=== PATIENT | male | born 1930 | race Caucasian/White ===

== ENCOUNTER 2016-12-04 01:23 | Inpatient (IN) | payer OTHER, MEDICARE ==
[~2016-12-04] VITALS: Ht 177.8 cm; Wt 68.5 kg
[~2016-12-04 01:23] MED LIST: ADVAIR 500-501 EACH INH; ALPRAZOLAM0.5 M4 PO; AMLODIPINE BESYL5 M1 PO; ASPIRIN EC325 M2 PO; ASPIRIN EC81 M1 PO; ATENOLOL50 M1 PO; HYDRALAZINE HCL50 M1 PO; HYDROCHLOROTHIA25 M1 PO; LIPITOR20 M2 PO; LOSARTAN-HCTZ1 EAC2 PO; PLAVIX75 M1 PO; SPIRIVA18 MCG INH
--- NOTE | 2016-12-04 01:28 | ED NEURO DEFICIT/STROKE ---
History of Present Illness General Chief Complaint: General Adult Stated Complaint: BIBA FOR EVAL OF STROKE Source: patient Exam Limitations: clinical condition Vital Signs & Intake/Output Vital Signs & Intake/Output Vital Signs Date Time Temp Pulse Resp B/P Pulse O2 O2 Flow FiO2 Ox Delivery Rate 12/04 0231 78 16 154/82 96 Room Air 12/04 0213 168/76 12/04 0157 98.0 75 20 169/118 95 Room Air Allergies Coded Allergies: NO KNOWN ALLERGIES (05/29/16) Reconcile Medications Alprazolam 0.5 MG TABLET 1 TAB PO TID PRN ANXIETY (Reported) Amlodipine Besylate 5 MG TABLET 1 TAB PO DAILY BP (Reported) Aspirin (Ecotrin*) 325 MG TABLET.DR 1 TAB PO DAILY anticoagulation Atenolol 50 MG TABLET 1 TAB PO BID BP (Reported) Atorvastatin Calcium (Lipitor) 20 MG TABLET 1 TAB PO DAILY CHOLESTEROL ( Reported) Fluticasone/Salmeterol (Advair 500-50 Diskus) (Unknown Strength) BLST.W.DEV 2 PUFF INH BID RESPIRATORY (Reported) Hydralazine HCl 50 MG TABLET 1 TAB PO TID BP (Reported) Hydrochlorothiazide 25 MG TABLET 1 TAB PO DAILY DAILY Tiotropium [place] (Spiriva) 18 MCG CAP.W.DEV 1 CAP INH DAILY RESPIRATORY ( Reported) Triage Nurses Notes Reviewed? yes Onset: UNCERTAIN ONSET Duration: hour(s): Timing: single episode today Severity: moderate New Weakness: LUE Vision Problem? Yes Impaired Ability: difficult to speak Baseline: alert, oriented x 3 Associated Symptoms: RIGHT GAZE PREFERENCE HPI: 86 yo gentleman presents with left sided weakness, dysarthria, and right gaze preference. He as last seen well approximately 5-6 hours ago. His family noted that he was making guttural sounds in the middle of the night and discovered him and called 911. Past History Travel History Traveled to [place] past 21 day No Medical History Any Pertinent Medical History? see below for history Neurological: TIA Cardiovascular: aortic stenosis, hypertension, hyperlipidemia Respiratory: COPD Hepatic: NONE Renal: chronic kidney disease Endocrine: NONE Cancer(s): NONE History of MRSA: No History of VRE: No History of CDIFF: No Pneumonia Vaccine: 09/17/14 Influenza Vaccine: 05/18/16 Surgical History Surgical History: POLYP REMOVAL NOSE ANGIOGRAM 2016 Psychosocial History Who do you live with Daughter Services at Home None What is your primary language Khmer Family History Hx Contributory? No Review of Systems Review of Systems Constitutional: Reports: no symptoms. EENTM: Reports: no symptoms. Respiratory: Reports: no symptoms. Cardiovascular: Reports: no symptoms. GI: Reports: no symptoms. Genitourinary: Reports: no symptoms. Musculoskeletal: Reports: no symptoms. Skin: Reports: no symptoms. Neurological/Psychological: Reports: no symptoms. Hematologic/Endocrine: Reports: no symptoms. Immunologic/Allergic: Reports: no symptoms. All Other Systems: Reviewed and Negative Physical Exam Physical Exam General Appearance: well developed/nourished, moderate distress Head: atraumatic, normal appearance Eyes: Bilateral: other (right gaze preference). Ears, Nose, Throat: normal ENT inspection Neck: normal inspection, supple Respiratory: normal breath sounds, chest non-tender, no respiratory distress, quiet respiration, lungs clear Cardiovascular: regular rate/rhythm Gastrointestinal: normal bowel sounds, soft, non-tender Back: normal inspection, normal range of motion Extremities: normal range of motion Psychiatric: lethargic Cranial Nerves: right gaze preference, minimally responsive to vigorous stimuli, intact but diminished gag reflex, no tongue deviation. decreased strength of left arm (4/5), but difficult to assess due to mental status change. no flacidity. Coordination/Gait: unable to assess due to patient's condition Motor/Sensory: minimal movement in left arm/leg Reflexes: 1+: bicep (R), bicep (L), knee (R), knee (L). Skin: intact Core Measures CVA/TIA Diagnosis: No Severe Sepsis Present: No Septic Shock Present: No Bedside Dysphagia Screen Bedside Swallow Eval Done: No (pt fails due to mental status ) Progress Differential Diagnosis: electrolyte imbalance, encephalitis, intracranial Hem., intracranial mass/tumor, migraine RUBIO, seizure disorder, subarachnoid Hem. Plan of Care: Orders Procedure Date/time Status Patient Data 12/04 0340 Active [place]arte, Insertion/Removal/Asses 12/04 015 Active CULTURE,URINE 12/04 0152 Active URINALYSIS 12/04 0152 Complete TROPONIN LEVEL 12/04 012 Complete PARTIAL THROMBOPLASTIN TIME 12/04 0128 Complete PROTHROMBIN TIME 12/04 012 Complete COMPREHENSIVE METABOLIC PANEL 12/05 127 Complete CBC WITHOUT DIFFERENTIAL 12/05 127 Complete EKG 12/04 012 Active Current Medications Sig/[place] Start time Last Medication Dose Stop Time Status Admin Phenytoin 1,000 MG ONCE ONE 12/04 199 CAN (Dilantin) 12/04 230 Sodium Chloride 250 ML (Normal Saline 0.9%) Laboratory Tests 12/04/16 0249: PT 12.1, INR 1.15, APTT 35 12/04/16158: Anion Gap 12, Estimated GFR 30 L, BUN/Creatinine Ratio 23.8, Glucose 77, Calcium 10.0, Total Bilirubin 0.6, AST 67 H, ALT 66, Alkaline Phosphatase 120, Troponin I 0.02, Total Protein 7.4, Albumin 3.9, Globulin 3.5, Albumin/Globulin Ratio 1.1, CBC w Diff NO MAN DIFF REQ, RBC 3.98 L, MCV 89.5, MCH 29.6, RDW 14.8 H, MPV 9.0, Gran % 68.1, Lymphocytes % 16.4 L, Monocytes % 8.9, Eosinophils % 6.1 H, Basophils % 0.5, Absolute Granulocytes 6.0, Absolute Lymphocytes 1.4, Absolute Monocytes 0.8 H, Absolute Eosinophils 0.5, Absolute Basophils 0, PUBS MCHC 33.0, Urinalysis LIGHT H, Urine Color YEL, Urine Clarity CLEAR, Urine pH 6.0, Ur Specific [place] 1.020, Urine Protein 30 H, Urine Ketones NEG, Urine Nitrite NEG, Urine Bilirubin NEG, Urine Urobilinogen 1.0, Ur Leukocyte Esterase NEG, Ur Microscopic SEDIMENT EXAMINED, Urine RBC RARE, Urine WBC RARE, Urine Mucus FEW, Urine Hemoglobin NEG, Urine Glucose NEG Microbiology 12/04 158 URINE ROUT: Urine Culture - RECD Diagnostic Imaging: Viewed by Me: Radiology Read, CT Scan. Discussed w/RAD: Radiology Read, CT Scan. Radiology Impression: head ct... at least 2 mass lesions... full report below. CXR Impression: no acute abnormality, no infiltrates, normal size heart, normal mediastinum Initial ED EKG: normal axis, normal intervals, normal p-waves, normal QRS complex, normal sinus rhythm Comments: PATIENT: FATIMAH MATHEW PRESENT AGE: 86 PATIENT ACCOUNT NO: [id number] : 31 LOCATION: [facility] ORDERING PHYSICIAN: LARRY TAMEZ MD SERVICE DATE: 12/04/16 EXAM TYPE: CAT - CT HEAD WO IV CONTRAST EXAMINATION: CT HEAD WITHOUT CONTRAST CLINICAL INFORMATION: Left-sided weakness COMPARISON: None TECHNIQUE: Contiguous axial imaging was performed from the skull base to vertex without intravenous administration of contrast. DLP: 1220.3 mGy-cm FINDINGS: There are 2 mass lesions. At the vertex in the left frontal region there is a hypodense area measuring 3.6 cm AP by 4.2 cm transverse. This has a subtle hyperdense rim. There is surrounding edema in the adjacent white matter. The second lesion in the right basal ganglia. Hypodense area measures 2.4 cm AP by 2.4 cm transverse with a slightly hyperdense rim. This is causing mass effect compressing the right lateral frontal horn and slight midline shift. These lesions raise question of metastatic disease. There is also a low attenuating area subcortical escobar matter in the right prefrontal gyrus. This may be related to the metastatic disease or underlying old infarct. There is also subtle hypodensity with subtle hyperdense surrounding cortex at the right posterior parietal-occipital region axial image 23 (3). There is atrophy with prominence of the ventricles and sulci consistent with patient age. There is vascular calcification of the internal carotid arteries. No intracranial hemorrhage. No extra-axial collection. The osseous structures and soft tissues are normal. The mastoid air cells and visualized portions of the paranasal sinuses are well aerated. Likely postsurgical changes of the medial wall the right and left maxillary sinuses IMPRESSION: There are at least 2 mass lesions in the head. This is suspicious of metastatic disease. Consider MRI of head without and with contrast for follow-up. This critical result was discussed with Dr. Tamez on 2:00 AM, 12/04/2016 and it was ascertained that the content and urgency of the report was understood at the time of direct communication. DICTATED BY: LATANYA SPENCE MD DATE/TIME DICTATED:12/04/16151 CONSUMER EDUCATION SPECIALIST:CASIE DATE/TIME TRANSCRIBED:12/04/16151 CONFIDENTIAL, DO NOT COPY WITHOUT APPROPRIATE AUTHORIZATION. <Electronically signed in Other Vendor System> SIGNED BY: LATANYA SPENCE MD 12/04/16 0209 PATIENT: FATIMAH MATHEW PRESENT AGE: 86 PATIENT ACCOUNT NO: [id number] : 31 LOCATION: [facility] ORDERING PHYSICIAN: LARRY TAMEZ MD SERVICE DATE: 12/04/16-0128 EXAM TYPE: RAD - XRY-PORTABLE CHEST XRAY EXAMINATION: XR PORTABLE CHEST CLINICAL INFORMATION: CVA. COMPARISON: Chest x-ray 05/31/2016 , 02/22/2016 TECHNIQUE: Portable AP view of the chest was obtained. 1:57 AM FINDINGS: No significant abnormality is noted involving the heart, lungs, mediastinum, bony thorax or soft tissues. IMPRESSION: No acute abnormality of the chest. DICTATED BY: LATANYA SPENCE MD DATE/TIME DICTATED:12/04/16228 CONSUMER EDUCATION SPECIALIST:CASIE DATE/TIME TRANSCRIBED:12/04/16228 CONFIDENTIAL, DO NOT COPY WITHOUT APPROPRIATE AUTHORIZATION. <Electronically signed in Other Vendor System> SIGNED BY: LATANYA SPENCE MD 12/04/16232 Departure Departure Disposition: STILL A PATIENT Condition: Stable Clinical Impression Primary Impression: Brain metastases Secondary Impressions: Mental status change, Renal insufficiency, Seizure Referrals: BARRY ADDISON,EUN Ayala (PCP/Family) Departure Forms: Customer Survey General Discharge Information Comments 12/04/16, 2:02am.... pt had brief seizure.... discussed with [facility]... most consistent with metastasis... discussed with neurologist dr. waters.... will give decadron, keppra... MRI in am. Admission Note Spoke With: DENISE ADDISON,[facility] Documentation of Exam: Documentation of any treatments & extenuating circumstances including Concerns Regarding Discharge (functional status, medication knowledge or non-compliance, living conditions, etc.) that warrant an admission rather than observation: pt with brain mets, pt had seizure in ED... received decadron/ativan/keppra... discussed with dr. waters.. neuro will see pt in AM... pt to be admitted to icu for monitoring... will require mri, further eval for likely primary. Critical Care Note Critical Care Note Critical Care Time: 30-74 min
--- NOTE | 2016-12-04 01:29 | NUR ---
PER EMS LAST SEEN NORMAL AT [facility] [phone], ABOUT 30 MINUTES AGO HEARD PT GRUNTING AND WENT TO CHECK ON HIM AND FOUND BY FAMILY WITH RT SIDED GAZE AND UNABLE TO SPEAK. UPON ED ARRIVAL PT LOOKS TO RT BUT NOT LEFT.
--- NOTE | 2016-12-04 01:37 | NUR ---
PT TO CAT SCAN VIA STRETCHER. HEART MONITOR AND THIS RN IN ATTENDANCE.
--- NOTE | 2016-12-04 01:40 | NUR ---
PT EXPERIENCING LEFT SIDE NEGLECT. PT UNABLE TO ARTICULATE WORDS AT THIS TIME.
--- NOTE | 2016-12-04 01:47 | NUR ---
PT EXPERIENCING SEIZURE LIKE ACTIVITY. DR BROWN NOTIFIED.
--- NOTE | 2016-12-04 01:50 | NUR ---
PT MEDICATED WITH 2MG ATIVAN IV. DR BROWN AT BEDSIDE.
--- NOTE | 2016-12-04 01:56 | NUR ---
16FR DEL RIO PLACED USING STERILE TECHNIQUE. OUTPUT: 450ML CLEAR YELLOW URINE. SPECIMEN SENT TO LAB.
--- NOTE | 2016-12-04 01:59 | NUR ---
SST, LAV, BLUE, ZHAO AND PINK TOP TUBES SENT TO LAB.
--- NOTE | 2016-12-04 02:08 | NUR ---
DR BROWN AT BEDSIDE TO EXPLAIN IMAGING RESULTS.
--- NOTE | 2016-12-04 02:09 | CT SCAN REPORT ---
EXAMINATION: CT HEAD WITHOUT CONTRAST CLINICAL INFORMATION: Left-sided weakness COMPARISON: None TECHNIQUE: Contiguous axial imaging was performed from the skull base to vertex without intravenous administration of contrast. DLP: 1220.3 mGy-cm FINDINGS: There are 2 mass lesions. At the vertex in the left frontal region there is a hypodense area measuring 3.6 cm AP by 4.2 cm transverse. This has a subtle hyperdense rim. There is surrounding edema in the adjacent white matter. The second lesion in the right basal ganglia. Hypodense area measures 2.4 cm AP by 2.4 cm transverse with a slightly hyperdense rim. This is causing mass effect compressing the right lateral frontal horn and slight midline shift. These lesions raise question of metastatic disease. There is also a low attenuating area subcortical escobar matter in the right prefrontal gyrus. This may be related to the metastatic disease or underlying old infarct. There is also subtle hypodensity with subtle hyperdense surrounding cortex at the right posterior parietal-occipital region axial image 23 (3). There is atrophy with prominence of the ventricles and sulci consistent with patient age. There is vascular calcification of the internal carotid arteries. No intracranial hemorrhage. No extra-axial collection. The osseous structures and soft tissues are normal. The mastoid air cells and visualized portions of the paranasal sinuses are well aerated. Likely postsurgical changes of the medial wall the right and left maxillary sinuses IMPRESSION: There are at least 2 mass lesions in the head. This is suspicious of metastatic disease. Consider MRI of head without and with contrast for follow-up. This critical result was discussed with Dr. Tamez on 2:00 AM, 12/04/2016 and it was ascertained that the content and urgency of the report was understood at the time of direct communication.
--- NOTE | 2016-12-04 02:20 | NUR ---
PHARMACY CALLED FOR JOY
[2016-12-04 02:29] LABS: ABSOLUTE BASOPHIL COUNT 0 /CUMM (0.0-0.2); ABSOLUTE EOSINOPHIL COUNT 0.5 /CUMM (0.0-0.7); ABSOLUTE LYMPH COUNT 1.4 /CUMM (1.2-3.4); ABSOLUTE MONOCYTE COUNT 0.8 /CUMM (0.10-0.60); BASOPHIL % 0.5 % (0.0-2.0); EOSINOPHIL % 6.1 % (0-5); GRANULOCYTE % 68.1 % (42.2-75.2); HEMATOCRIT 35.7 % (42-52); MEAN CORPUSCULAR HGB 29.6 PG (27.0-31.0); MEAN CORPUSCULAR VOLUME 89.5 FL (80.0-94.0); PLATELET COUNT 338 /CUMM (130-400); RBC DISTRIBUTION WIDTH 14.8 % (11.5-14.5); RED BLOOD CELL CT 3.98 /CUMM (4.70-6.10); WHITE BLOOD CELL COUNT 8.8 /CUMM (4.8-10.8)
--- NOTE | 2016-12-04 02:33 | RADIOLOGY REPORT ---
EXAMINATION: XR PORTABLE CHEST CLINICAL INFORMATION: CVA. COMPARISON: Chest x-ray 05/31/2016 , 02/22/2016 TECHNIQUE: Portable AP view of the chest was obtained. 1:57 AM FINDINGS: No significant abnormality is noted involving the heart, lungs, mediastinum, bony thorax or soft tissues. IMPRESSION: No acute abnormality of the chest.
--- NOTE | 2016-12-04 02:34 | NUR ---
PT EXPERIENCING MUMBLING BUT WORDS ARE NOT CLEAR.
--- NOTE | 2016-12-04 02:50 | NUR ---
DANIEL PARKER AND SENT TO LAB
--- NOTE | 2016-12-04 03:08 | NUR ---
KEPPRA 1000MG ON PUMP AND INFUSING PER EMAR ORDER.
--- NOTE | 2016-12-04 03:09 | NUR ---
WILL CONTINUE TO MONITOR PT.
[2016-12-04 03:12] LABS: PT 12.1 SEC (9.4-12.5); PTT 35 SEC (25-37)
--- NOTE | 2016-12-04 03:37 | NUR ---
PT RESTING ON STRETCHER. FAMILY AT BEDSIDE FOR EMOTIONAL SUPPORT. WILL CONTINUE TO MONITOR.
--- NOTE | 2016-12-04 03:55 | NUR ---
HOUSESTAFF AT BEDSIDE.
--- NOTE | 2016-12-04 04:48 | History & Physical ---
THEO MENDOZA MD 12/04/16 0448: General Information and HPI MD Statement: I have seen and personally examined FATIMAH MATHEW and documented this H&P. The patient is a 86 year old M who presented with a patient stated chief complaint of altered mental status. Source of Information: family, old records Exam Limitations: clinical condition History of Present Illness: Mr. Mathew is an 86 year old male with PMH anxiety, HTN, HLD, TIA, aortic stenosis, COPD not on home O2, CKD stage 3 secondary to hypertensive nephrosclerosis and right carotid endarterectomy who presents after an episode of altered mental status at home. Patient is not responsive to questioning and history is obtained from patient's son and [id number] who are at bedside. As per the family, patient was in his usual state of health until this evening when his daughter heard him coughing and went to his room to check up on him, at which time she found he was laying in bed fully dressed making gutteral sounds and not responsive to questioning or commands. Patient showed no signs of seizure like activity, no tremors, no loss of bowel/bladder function, no foaming at the mouth. EMS was called and on arrival to the ED, patient was noted to have a generalized seizure, for which he received ativan, keppra and decadron. Of note, family does note that patient has recently lossed some weight though his appetite remained appropriate, he was more lethargic in the last few days and his eyes occasionally appeared glazed over. There is no recent report of fever, chills, chest pain, cough, shortness of breath, abdominal pain, nausea, vomiting , difficulty voiding or change in bowel habits (one bowel movement every 3 days) . Social history is significant for about 60-70 years of tobacco abuse. Mr. Mathew's son also reports that his father appreciated alcohol and was at one point a "functional alcoholic" though he does not drink as much as he used to. No illicit drug use history. Patient sees Dr. 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 He also follows with a tungsten tender for new rash on his bilateral upper extremities that is being treated with hydrocortisone and mupirocin. Functional status is completely independant and patient ambulates without assistance. Allergies/Medications Allergies: Coded Allergies: NO KNOWN ALLERGIES (05/29/16) Home Med list Alprazolam 0.5 MG TABLET 1 TAB PO TID PRN ANXIETY (Reported) Amlodipine Besylate 5 MG TABLET 1 TAB PO DAILY BP (Reported) Aspirin (Ecotrin*) 325 MG TABLET.DR 1 TAB PO DAILY anticoagulation Atenolol 50 MG TABLET 1 TAB PO BID BP (Reported) Atorvastatin Calcium (Lipitor) 20 MG TABLET 1 TAB PO DAILY CHOLESTEROL ( Reported) Fluticasone/Salmeterol (Advair 500-50 Diskus) (Unknown Strength) BLST.W.DEV 2 PUFF INH BID RESPIRATORY (Reported) Hydralazine HCl 50 MG TABLET 1 TAB PO TID BP (Reported) Hydrochlorothiazide 25 MG TABLET 1 TAB PO DAILY DAILY Tiotropium [place] (Spiriva) 18 MCG CAP.W.DEV 1 CAP INH DAILY RESPIRATORY ( Reported) Compliance With Home Meds: GOOD Past History Travel History Traveled to [place] past 21 day No Medical History Neurological: TIA EENT: NONE Cardiovascular: aortic stenosis, hypertension, hyperlipidemia Respiratory: COPD Gastrointestinal: NONE Hepatic: NONE Renal: chronic kidney disease Musculoskeletal: NONE Endocrine: NONE Cancer(s): NONE History of MRSA: No History of VRE: No History of CDIFF: No Pneumonia Vaccine: 09/17/14 Influenza Vaccine: 05/18/16 Surgical History Surgical History: POLYP REMOVAL NOSE ANGIOGRAM 2016 Past Family/Social History Psychosocial History Where do you live? Home Who Do You Live With? Family Services at Home: None Primary Language: Polish Smoking Status: Former Smoker ETOH Use: occasional use Illicit Drug Use: denies illicit drug use Living Will? no Functional Ability ADLs Independent: dressing, eating, toileting, bathing. Ambulation: independent IADLs Independent: shopping, housework, finances, food prep, telephone, transportation , medication admin. 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 Denies: chills, fever, malaise. EENTM: Denies: blurred vision, visual changes, nasal congestion, throat pain. Cardiovascular: Denies: chest pain, palpitations, syncope. Respiratory: Denies: cough, short of breath. GI: Denies: abdominal pain, diarrhea, nausea, vomiting. Genitourinary: Denies: dysuria, hematuria. Musculoskeletal: Denies: back pain, muscle pain. Skin: Reports: rash. Denies: lumps. Neurological/Psychological: Denies: ataxia, confusion, headache, pre-existing deficit, unable to move lower ext, unable to move upper ext. Hematologic/Endocrine: Denies: bruising, bleeding. Immunologic/Allergic: Denies: splenectomy. All Other Systems: Reviewed and Negative Colonoscopy Testing Status: Test never done Exam & Diagnostic Data Last 24 Hrs of Vital Signs/I&O Vital Signs Date Time Temp Pulse Resp B/P Pulse O2 O2 Flow FiO2 Ox Delivery Rate 12/04 0231 78 16 154/82 96 Room Air 12/04 0213 168/76 12/04 0157 98.0 75 20 169/118 95 Room Air Intake & Output 12/04 0800 12/04 0000 12/03 1600 Intake Total Output Total 450 Balance -450 Output, Urine 450 Physical Exam General Appearance Patient not responsive to questioning, not able to participate in physical exam. AAOxo. Skin Rash noted on right forearm and left upper arm, mildly erythematous, possibly eczema. HEENT Atraumatic, PERRLA, Mucous Membr. moist/pink Neck Supple, +2 Carotid Pulse wo Bruit Lymphatic Cervical nl Cardiovascular Regular Rate, Normal S1, Normal S2, No Murmurs Lungs Clear to Auscultation, Normal Air Movement Abdomen Normal Bowel Sounds, Soft, No Tenderness, No Masses Neurological Normal Tone, Neurological exam unable to be performed as patient cannot follow commands. No facial droop noted. Patient able to move extremities. Babinski downgoing bilaterally. PEERL. Extremities No Clubbing, No Cyanosis, No Edema, Normal Pulses Vascular Pulses Symmetrical Last 24 Hrs of Labs/Nestor: Laboratory Tests 12/04/16 0249: PT 12.1, INR 1.15, APTT 35 12/04/16 0159: Anion Gap 12, Estimated GFR 30 L, BUN/Creatinine Ratio 23.8, Glucose 77, Calcium 10.0, Total Bilirubin 0.6, AST 67 H, ALT 66, Alkaline Phosphatase 120, Troponin I 0.02, Total Protein 7.4, Albumin 3.9, Globulin 3.5, Albumin/Globulin Ratio 1.1, CBC w Diff NO MAN DIFF REQ, RBC 3.98 L, MCV 89.5, MCH 29.6, RDW 14.8 H, MPV 9.0, Gran % 68.1, Lymphocytes % 16.4 L, Monocytes % 8.9, Eosinophils % 6.1 H, Basophils % 0.5, Absolute Granulocytes 6.0, Absolute Lymphocytes 1.4, Absolute Monocytes 0.8 H, Absolute Eosinophils 0.5, Absolute Basophils 0, PUBS MCHC 33.0, Urinalysis LIGHT H, Urine Color YEL, Urine Clarity CLEAR, Urine pH 6.0, Ur Specific [place]pt[place] 1.020, Urine Protein 30 H, Urine Ketones NEG, Urine Nitrite NEG, Urine Bilirubin NEG, Urine Urobilinogen 1.0, Ur Leukocyte Esterase NEG, Ur Microscopic SEDIMENT EXAMINED, Urine RBC RARE, Urine WBC RARE, Urine Mucus FEW, Urine Hemoglobin NEG, Urine Glucose NEG Microbiology 12/04 0159 URINE ROUT: Urine Culture - RECD Diagnostic Data EKG Results Sinus tachycardia, HR 104, QTC 406 CXR Results IMPRESSION: No acute abnormality of the chest. Other Results CT HEAD WITHOUT CONTRAST CLINICAL INFORMATION: Left-sided weakness COMPARISON: None TECHNIQUE: Contiguous axial imaging was performed from the skull base to vertex without intravenous administration of contrast. DLP: 1220.3 mGy-cm FINDINGS: There are 2 mass lesions. At the vertex in the left frontal region there is a hypodense area measuring 3.6 cm AP by 4.2 cm transverse. This has a subtle hyperdense rim. There is surrounding edema in the adjacent white matter. The second lesion in the right basal ganglia. Hypodense area measures 2.4 cm AP by 2.4 cm transverse with a slightly hyperdense rim. This is causing mass effect compressing the right lateral frontal horn and slight midline shift. These lesions raise question of metastatic disease. There is also a low attenuating area subcortical escobar matter in the right prefrontal gyrus. This may be related to the metastatic disease or underlying old infarct. There is also subtle hypodensity with subtle hyperdense surrounding cortex at the right posterior parietal-occipital region axial image 23 (3). There is atrophy with prominence of the ventricles and sulci consistent with patient age. There is vascular calcification of the internal carotid arteries. No intracranial hemorrhage. No extra-axial collection. The osseous structures and soft tissues are normal. The mastoid air cells and visualized portions of the paranasal sinuses are well aerated. Likely postsurgical changes of the medial wall the right and left maxillary sinuses IMPRESSION: There are at least 2 mass lesions in the head. This is suspicious of metastatic disease. Consider MRI of head without and with contrast for follow-up. Assessment/Plan Assessment: Mr. Mathew is an 86 year old male with PMH anxiety, HTN, HLD, TIA, aortic stenosis, COPD not on home O2, CKD stage 3 secondary to hypertensive nephrosclerosis and right carotid endarterectomy who presents after episode of unresponsiveness and altered mental status at home. Family noted patient was coughing and making gutteral sounds and on evaluation of him was unable to get a response from him. EMS was called and on arrival to the ED, patient experienced a seizure treated with keppra, ativan and decadron. In the ED: Vital signs showed T 98.0, HR 75, RR 20, BP 169/118 and O2 saturation of 95% on room air. Labs were significant for normocytic anemia to 11.8/35.7, BUN/cre 50/2.1 (baseline cre 1.8), AST 67, troponin 0.02, INR 1.15 and UA showing high protein. CXR performed was within normal limits. Head CT showed agt least 2 masses in the head, suspicious for metastatic disease. Patient is admitted to the ICU and the following is the management: 1. Altered sensorium secondary to new onset seizure * Likely secondary to brain masses seen on CT head * Continue IV keppra 500 mg IV Q12, IV ativan PRN seizures, and IV decadron 4 mg Q6 * Seizure precautions, aspiration precautions * Neurochecks Q 1 H * CT chest, abdomen pelvis to look for possible source of metastatic cancer * MRI head pending for AM to better characterize lesion * Neurosurgery consult pending * Neurology consult for AM * Oncology consult for AM * Keep NPO as patient has altered sensorium and cannot perform bedside swallow at this time * IVF with D5-Normal Saline at 75 cc/h while NPO 2. CKD stage 3 * Monitor BEP and electrolytes * Continue IVF while patient NPO 3. HTN, HLD * Monitor vital signs Q shift * Hold antihypertensives for now, patient NPO * Permissive HTN with goal BP 140 DNR/DNI DVTP: SC Lovenox Diet: NPO Mild pain pathway As Ranked By This Provider Problem List: 1. Brain metastases 2. Seizure 3. Mental status change 4. Renal insufficiency 5. S/P carotid endarterectomy Core Measures/Miscellaneous Acute Coronary Syndrome ACS Diagnosis: No Cerebrovascular Accident CVA/TIA Diagnosis: No Bedside Swallow Eval Done: No (pt fails due to mental status ) Congestive Heart Failure CHF Diagnosis: No Venous Thromboembolism VTE Risk Factors: Acute medical illness, Age > 40 [facility] prophylaxis d/t: No contraindications No VTE Pharm Prophylaxis d/t: No contraindications VTE Diagnosis: No VTE Type: NONE VTE Confirmed by (Test): NONE Severe Sepsis Severe Sepsis Present: No Septic Shock Septic Shock Present: No Miscellaneous Documentation Attending Case Discussed With: HORACE WALKER MDYasmin Primary Care Physician: EUN REDDY MD Patient sees these Specialists Dr. Maharaj, Pulmonology Level of Patient Care: Telemetry MARSHAL ADDISON,[facility] 12/04/16 0528: Resident Review Statement Resident Statement: examined this patient, discussed with dental internship, agreed with dental internship Other Findings: This is an 86 y/o M with a PMH of HTN, HLD, CKD Stage 3, COPD recent carotid endarterectomy who presented to the ED after he was found to be altered and unable to follow commands at home. Per family, patient was walking and doing all his ADL's today. He was last seen normal at dinner. He was found a few hours later in his bed, making guttural sounds and was not responsive to verbal commands. There was no evidence of foaming at the mouth, bowel or bladder incontinence. He was also found not to be moving his extremities at the time. EMS was called and the patient was brought to the ED, where he had a generalized seizure. At the time of the interview, the patient was non verbal and unable to follow commands. Vitals: Stable Labs: Creatinine 2.1 Imaging: Presence of 2 mass lesions in the head (left frontal region and the right basal ganglia) seen on CT Head. CXR did not show the presence of any acute changes. Exam: Patient was somnolent. Unable to follow most commands, but was moving all his extremities spontaneously. Was unable to track. Babinski's downgoing. Reflexes 2+. Problem List: 1) Altered sensorium likely 2/2 seizures from possible parenchymal inflammation surrounding the brain lesions, which are mets from an unknown primary 2) CKD stage III 3) Hypertension 4) Hyperlipidemia 5) Severe anxiety 6) Skin lesions on the left elbow s/p biopsy with no available result Plan: * Admit patient to CCU * He received Ativan, Keppra and Decadron in the ED * For now, continue Decadron 4 mg Q6, Ativan 2 mg Q6P for seizures, Keppra 500 IV BID * CT Chest/Abdomen/Pelvis to look for primary * Neurology consult, Neurosurgery consult, Med-Onc consult * Family aware of the current prognosis and does want workup done to find the primary * DVT PPx: ALPS * Pain Pathway: Tylenol PRN * Code Status: DNR/DNI DENISE ADDISON, [facility] 12/04/16 0529: Attending MD Review Statement Attending Statement Attending MD Statement: examined this patient, discuss w/resident/PA/FIELD TRAINING MANAGER, agreed w/resident/PA/FIELD TRAINING MANAGER, discussed with family Attending Assessment/Plan: 86 yo M smoker, with h/o COPD, HTN, TIA s/p right CEA, CKD stage 3, aortic valve disease, previous alcohol dependence, BIBA for evaluation of altered mentation. Per daughter in law, patient was last seen normal around 7pm. A few hours later, they found him coughing, making grunting sounds and not responsive to verbal commands. He had a right gaze. No seizure like acitivity, urinary or fecal incontinence or tongue biting. 911 was called, on ER arrival patient had a brief episode of tonic-clonic seizure that was self limited. Daughter in law also reports that he has never had a colonoscopy, but he was compliant with doctor appointments. No personal h/o cancer. He sees Dr. Maharaj for COPD. Patient has not report any GI or symptoms. Family did note that he may have lost weight, though they cannot give us a number. Over past 1 week, family noted he was more lethargic and fatigued. Vitals stable except for hypertension BP 188/80. Exam limited as patient can barely follow commands. He is lethargic, but opens his eyes, tracks his daughter -in-laws voice. He did open his mouth and squeezed both hands on verbal command. No obvious facial droop, no gaze preference at this point, pupils equal and RTL but unable to track with eyes, moving all extremities though left side seems slightly weaker, reflexes 2+, plantars downgoing. Unable to assess cerebellar function, sensation, etc. Labs: BUN 50, creat 2.1 (baseline 1.7-1.8), trop neg, UA clear. CXR: neg. Head CT: 2 mass lesions suspicious for metastatic disease, 1st in left frontal region with surrounding edema and 2nd in right basal ganglia causing mass effect compressing right lateral frontal horn and midline shift. EKG: SR. 1. AMS new onset seizure with post-ictal confusion in the setting of brain lesions that appear metastatic, unknown primary. Less likely ischemic stroke. ICU admit, vitals Q1 hr, neurochecks Q1, GCS, NPO, IV fluids, aspiration and fall precautions, IV keppra and decadron, IV ativan PRN for seizures, Neurology and Neuro-surgery consult. MRI brain in AM to assess the mass lesions. CT chest/ abd/pelvis to locate primary. Patient has had skin biopsy last year, please obtain biopsy results. Oncology consult. [facility] consult. Hold aspirin. 2. Permissive hypertension, keep SBP around 140 mmHg. 3. Acute on CKD stage 3. Gentle hydration, monitor renal functions. GI ppx IV PPI. DVT ppx Alps (no heparin or lovenox). DNR/I. Detailed discussion held with patient's son and daughter in law. Daughter in law has worked in hospice care and understands the situation, while son is still in denial. They are agreeable to work up (CT/ MRI) but may not wish for aggressive management, as they understand he has a poor prognosis. TTS > 45 mins
--- NOTE | 2016-12-04 05:00 | NUR ---
PER PT'S FAMILY, THEY DO NOT WANT EMS IV TO BE DISCONTINUED AT THIS TIME. FAMILY ALLOWS FOR ONE ADDITIONAL IV TO BE ESTABLISHED. PER FAMILY, "WE DO NOT WANT TO CAUSE HIM ANY PAIN."
--- NOTE | 2016-12-04 05:23 | NUR ---
PT TO AND FROM CAT SCAN. PT ABLE TO ARTICULATE THE WORD "YES" WHILE IN CAT SCAN.
--- NOTE | 2016-12-04 05:30 | Admission Certification ---
Admission Certification Certification Statement - As attending physician, I certify that at the time of - admission, based on clinical presentation, severity of - symptoms, need for further diagnostic testing and - therapeutic interventions, and risk of adverse outcomes - without in-hospital treatment, in my clinical assessment, - this patient requires an acute hospital stay for a minimum - of two nights or longer. I have also considered psychsocial - factors such as support system, advanced age, financial - issues, cognitive issues, and failed out-patient treatments, - past re-admission history, safety of patient, and lack of - compliance as applicable. Specific rationale supporting this admission is: Altered mental status, new onset seizure, brain mets unknown primary, needs ICU level of care.
--- NOTE | 2016-12-04 05:35 | NUR ---
HOUSETAFF PAGED, BEEPER 033 PAGED.
--- NOTE | 2016-12-04 05:36 | NUR ---
HOUSESTAFF RETURNED CALL.
--- NOTE | 2016-12-04 05:37 | NUR ---
MANUAL BP 188/80 HOUSESTAFF AWARE.
--- NOTE | 2016-12-04 05:52 | CT SCAN REPORT ---
EXAMINATION: CT CHEST, ABDOMEN AND PELVIS WITHOUT CONTRAST CLINICAL INFORMATION: Abnormal CT head with probable brain metastases. Evaluating for possible primary. COMPARISON: Chest x-ray 05/31/2016 TECHNIQUE: Noncontrast axial images obtained through the chest abdomen and pelvis. No oral contrast given. Coronal and sagittal reformatted images performed at the CT scanner DLP: 471.22 mGy-cm. FINDINGS: CT CHEST: Lungs: Mildly spiculated lobular mass lesion at the posterior medial left lung base. The lesion measures 3.7 x 2.4 x 2.9 cm. This is highly suspicious for malignancy. There are additional lung nodules: 1. There is a peripheral groundglass opacity in the left upper lobe measuring 1.3 cm image 19 (3). 2. 2 mm nodule medial right upper lobe image 32 (3) 3. 3 mm nodule right middle lobe image 34 (3). There is a small Infiltrates/atelectasis at the dependent right lung base. Mediastinum: No mass or lymphadenopathy. There is vascular calcifications of aorta and great vessels and coronary arteries. No pericardial effusion. Pleura: There is no pleural effusion. No pleural mass or thickening. Axilla: No lymphadenopathy. CT ABDOMEN AND PELVIS: LIVER, GALLBLADDER, AND BILIARY TREE: Multiple masses throughout the liver consistent with metastatic disease. These are of low attenuation. Largest inferior right lobe measuring 6 cm transverse. The gallbladder is unremarkable with no evidence of radiopaque gallstones, gallbladder wall thickening, or obvious pericholecystic inflammatory changes. PANCREAS: No acute change of the pancreas. No mass. No pancreatic duct dilatation. SPLEEN: Coarse calcification within the medial mid spleen. No mass evident. ADRENAL GLANDS: Adrenal glands are normal in size. No focal mass. KIDNEYS AND URETERS: Bilateral low attenuating renal cysts. There is also likely a hyperdense cyst at the upper pole of the right kidney measuring 1.4 cm. No renal or ureteral calculus. No hydronephrosis. BLADDER: Duarte catheter within the bladder. GASTROINTESTINAL TRACT: No acute change of the bowel. No bowel obstruction. No bowel wall thickening or edema. There is diverticulosis of left colon. Diverticulitis. The appendix is normal. Small bowel loops are normal. MESENTERY: No focal inflammation. No free fluid. No free air. ABDOMINAL WALL: No significant hernia is appreciated. LYMPH NODES: No bulky lymphadenopathy. VASCULAR: Atherosclerotic vascular wall calcifications of aorta. 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 PELVIC VISCERA: Unremarkable. OSSEOUS STRUCTURES: No suspicious osseous lesion. Multilevel degenerative spondylosis of the spine with disc height narrowing and endplate spurs and facet joint arthrosis. IMPRESSION: 1. Mass lesion in the left lower lobe highly suspicious for malignancy. Additional smaller groundglass and small lung nodules in both lungs. 2. Right lower lobe infiltrate/atelectasis. 3. Metastatic disease of the liver.
--- NOTE | 2016-12-04 06:16 | NUR ---
BLOOD DRAWN AND SENT TO LAB [facility]
[2016-12-04 06:22] LABS: ABSOLUTE BASOPHIL COUNT 0 /CUMM (0.0-0.2); ABSOLUTE EOSINOPHIL COUNT 0.1 /CUMM (0.0-0.7); ABSOLUTE GRANULOCYTE CT 6.9 /CUMM (1.4-6.5); ABSOLUTE LYMPH COUNT 0.9 /CUMM (1.2-3.4); ABSOLUTE MONOCYTE COUNT 0.2 /CUMM (0.10-0.60); BASOPHIL % 0.1 % (0.0-2.0); EOSINOPHIL % 1.8 % (0-5); GRANULOCYTE % 85.4 % (42.2-75.2); HEMATOCRIT 32.6 % (42-52); MEAN CORPUSCULAR HGB 29.5 PG (27.0-31.0); MEAN CORPUSCULAR HGB CONC 33.1 G/DL (33.0-37.0); MEAN CORPUSCULAR VOLUME 89.2 FL (80.0-94.0); MEAN PLATELET VOLUME 8.2 FL (7.4-10.4); PLATELET COUNT 292 /CUMM (130-400); RED BLOOD CELL CT 3.65 /CUMM (4.70-6.10); WHITE BLOOD CELL COUNT 8.1 /CUMM (4.8-10.8)
--- NOTE | 2016-12-04 06:35 | NUR ---
BP NOW 133/63, APRESOLINE NOT GIVEN AT THIS TIME.
--- NOTE | 2016-12-04 06:37 | NUR ---
REPORT GIVEN TO HEMAL LINDA ON ICU.
[2016-12-04 07:00] VITALS: BP 153/63
--- NOTE | 2016-12-04 07:27 | Cons- CRCU ---
DANNY ADDISON,[facility] 12/04/16 0727: General Information and HPI History of Present Illness: Mr. Tovar is an 86 year old male with PMH anxiety, HTN, HLD, TIA, aortic stenosis, COPD not on home O2, CKD stage 3 secondary to hypertensive nephrosclerosis and right carotid endarterectomy who presented after an episode of altered mental status at home. Patient was not responsive to questioning and history was obtained from patient's son and [id number] who were at bedside. As per the family, patient was in his usual state of health until this evening when his daughter heard him coughing and went to his room to check up on him, at which time she found he was laying in bed fully dressed making gutteral sounds and not responsive to questioning or commands. Patient showed no signs of seizure like activity, no tremors, no loss of bowel/bladder function, no foaming at the mouth. EMS was called and on arrival to the ED, patient was noted to have a generalized seizure, for which he received ativan, keppra and decadron. Of note, family does note that patient had recently lost some weight though his appetite remained appropriate, he was more lethargic in the last few days and his eyes occasionally appeared glazed over. There is no recent report of fever, chills, chest pain, cough, shortness of breath, abdominal pain, nausea, vomiting , difficulty voiding or change in bowel habits (one bowel movement every 3 days) . Social history is significant for about 60-70 years of tobacco abuse. Mr. Tovar's son also reports that his father appreciated alcohol and was at one point a "functional alcoholic" though he does not drink as much as he used to. No illicit drug use history. 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 He also follows with a photographic printer for new rash on his bilateral upper extremities that is being treated with hydrocortisone and mupirocin. Functional status is completely independant and patient ambulates without assistance. He was admitted to ICU overnight for altered mental status likely secondary to brain metastasis, neurology, oncology, neurosurgery consults were placed. Allergies/Medications Allergies: Coded Allergies: NO KNOWN ALLERGIES (05/29/16) Home Med List: Alprazolam 0.5 MG TABLET 1 TAB PO TID PRN ANXIETY (Reported) Amlodipine Besylate 5 MG TABLET 1 TAB PO DAILY BP (Reported) Aspirin (Ecotrin*) 325 MG TABLET.DR 1 TAB PO DAILY anticoagulation Atenolol 50 MG TABLET 1 TAB PO BID BP (Reported) Atorvastatin Calcium (Lipitor) 20 MG TABLET 1 TAB PO DAILY CHOLESTEROL ( Reported) Fluticasone/Salmeterol (Advair 500-50 Diskus) (Unknown Strength) BLST.W.DEV 2 PUFF INH BID RESPIRATORY (Reported) Hydralazine HCl 50 MG TABLET 1 TAB PO TID BP (Reported) Hydrochlorothiazide 25 MG TABLET 1 TAB PO DAILY DAILY Tiotropium [place] (Spiriva) 18 MCG CAP.W.DEV 1 CAP INH DAILY RESPIRATORY ( Reported) Past History Travel History Traveled to [place] past 21 day No Medical History Neurological: TIA EENT: NONE Cardiovascular: aortic stenosis, hypertension, hyperlipidemia Respiratory: COPD Gastrointestinal: NONE Hepatic: NONE Renal: chronic kidney disease Musculoskeletal: NONE Endocrine: NONE Cancer(s): NONE Surgical History Surgical History: POLYP REMOVAL NOSE ANGIOGRAM 2016 Psychosocial History Where Do You Live? Home Who Do You Live With? Family Services at Home: None Primary Language: Vincentian Smoking Status: Former Smoker ETOH Use: occasional use Illicit Drug Use: denies illicit drug use Living Will? no Functional Ability ADLs Independent: dressing, eating, toileting, bathing. Ambulation: independent IADLs Independent: shopping, housework, finances, food prep, telephone, transportation , medication admin. Employment History Employment: Retired Profession/Employer: [employer] Exam & Diagnostic Data Physical Exam General Appearance: no apparent distress Assessment/Plan Impression/Plan: Mr. 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 Family noted patient was coughing and making gutteral sounds and on evaluation of him was unable to get a response from him. EMS was called and on arrival to the ED, patient experienced a seizure treated with keppra, ativan and decadron. In the ED: Vital signs showed T 98.0, HR 75, RR 20, BP 169/118 and O2 saturation of 95% on room air. Labs were significant for normocytic anemia to 11.8/35.7, BUN/cre 50/2.1 (baseline cre 1.8), AST 67, troponin 0.02, INR 1.15 and UA showing high protein. CXR performed was within normal limits. Head CT showed agt least 2 masses in the head, suspicious for metastatic disease. Patient is admitted to the ICU and the following is the management: 1. Altered sensorium secondary to new onset seizure: Likely secondary to brain masses seen on CT head, patient was started on IV keppra 500 mg IV Q12, IV ativan PRN seizures, and IV decadron 4 mg Q6, along with Seizure precautions, aspiration precautions, Neurochecks Q 1 H, CT chest showed evidence of lobular mass lesion at the posterior medial left lung base highly suspicious of malignancy, oncology on board, patient family made aware of the diagnosis, patient current clinical condition and unfortunately poor prognosis secondary to metastic lung disease explained to the family, in the meanwhile neurology and neurosurgery consults have been placed recommendations pending. Will keep patient nothing by mouth second altered sensorium, will further talk about goals of care when appropriate. 2. CKD stage 3 * Monitor BEP and electrolytes * Continue IVF while patient NPO 3. HTN, HLD * Monitor vital signs Q shift * Hold antihypertensives for now, patient NPO * Permissive HTN with goal BP 140 DNR/DNI DVTP: SC Lovenox Diet: NPO Mild pain pathway Consult Acknowledgment - Thank you for your consult request. SHAMAR AGUILAR MD 12/04/16 0924: General Information and HPI Consulting Request Date of Consult: 12/04/16 Requested By: Dr. Mccarthy Reason for Consult: AMS Source of Information: family Exam Limitations: unable to give history Allergies/Medications Current Medications: Current Medications Sig/Guicho Start time Last Medication Dose Route Stop Time Status Admin Acetaminophen 1,000 MG Q6P PRN 12/04 0500 AC IV Dexamethasone 4 MG Q6 12/04 0600 AC 12/04 Dextrose/Water 50 ML IV 0618 Dexamethasone 8 MG ONCE ONE 12/04 0215 DC 12/04 IV PUSH 12/04 0216 0236 Dextrose/Sodium 1,000 ML .[id number] 12/04 0500 AC 12/04 Chloride IV 0637 Enoxaparin Sodium 30 MG DAILY 12/04 1000 CAN SC Hydralazine HCl 5 MG ONCE ONE 12/04 0545 DC IV 12/04 0546 Levetiracetam 500 MG Q12 12/04 1000 AC N/A 1 UNIT IV Levetiracetam 1,000 MG ONCE ONE 12/04 0215 DC 12/04 N/A 1 UNIT IV 12/04 0229 0308 Lorazepam 2 MG Q6P PRN 12/04 0500 AC IV Lorazepam 2 MG ONCE ONE 12/04 0200 DC 12/04 IV 12/04 0201 0156 Lorazepam 0 .STK-MED ONE 12/04 0152 DC .ROUTE Morphine Sulfate 2 MG Q1 NEEDED PRN 12/04 0845 AC IV Pantoprazole Sodium 40 MG DAILY 12/04 1000 CAN IV Phenytoin 1,000 MG ONCE ONE 12/04 020 CAN Sodium Chloride 250 ML IV 12/04 0231 Review of Systems Comments ROS unobtainable secondary to altered mental status Past History Family History Relations & Conditions If Any: Relation not specified for: *No pertinent family history Exam & Diagnostic Data Last 24 Hrs of Vital Signs/I&O Vital Signs Date Time Temp Pulse Resp B/P Pulse O2 O2 Flow FiO2 Ox Delivery Rate 12/04 0927 Nasal 2.0L Cannula 12/04 0800 100 Nasal 2.0L Cannula 12/04 0800 97 Nasal 2.0L Cannula 12/04 0700 73 153/63 12/04 0700 96.6 73 23 153/63 100 Nasal 2.0L Cannula 12/04 0618 96.7 65 18 133/63 98 Nasal 2.0L Cannula 12/04 0524 97.3 65 18 188/80 97 Room Air 12/04 0231 78 16 154/82 96 Room Air 12/04 0213 168/76 12/04 0157 98.0 75 20 169/118 95 Room Air Intake & Output 12/04 1600 12/04 0800 12/04 0000 Intake Total Output Total 450 Balance -450 Output, Urine 450 Patient 151 lb Weight Last 48 Hrs of Labs/Nestor: Laboratory Tests 12/04/16 0614: Anion Gap 8, Estimated GFR 34 L, BUN/Creatinine Ratio 24.2, CBC w Diff MAN DIFF ORDERED, RBC 3.65 L, MCV 89.2, MCH 29.5, RDW 15.0 H, MPV 8.2, Gran % 85.4 H, Lymphocytes % 10.8 L, Monocytes % 1.9, Eosinophils % 1.8, Basophils % 0.1, Absolute Granulocytes 6.9 H, Segmented Neutrophils 91 H, Absolute Lymphocytes 0.9 L, Lymphocytes 7 L, Monocytes 1 L, Absolute Monocytes 0.2, Eosinophils 1, Absolute Eosinophils 0.1, Absolute Basophils 0, Platelet Estimate ADEQUATE, Hypochromic-Microcytic 1+, Poikilocytosis 1+, Ovalocytes 1+, PUBS MCHC 33.1 12/04/16 0249: PT 12.1, INR 1.15, APTT 35 12/04/16 0159: Anion Gap 12, Estimated GFR 30 L, BUN/Creatinine Ratio 23.8, Glucose 77, Calcium 10.0, Total Bilirubin 0.6, AST 67 H, ALT 66, Alkaline Phosphatase 120, Troponin I 0.02, Total Protein 7.4, Albumin 3.9, Globulin 3.5, Albumin/Globulin Ratio 1.1, CBC w Diff NO MAN DIFF REQ, RBC 3.98 L, MCV 89.5, MCH 29.6, RDW 14.8 H, MPV 9.0, Gran % 68.1, Lymphocytes % 16.4 L, Monocytes % 8.9, Eosinophils % 6.1 H, Basophils % 0.5, Absolute Granulocytes 6.0, Absolute Lymphocytes 1.4, Absolute Monocytes 0.8 H, Absolute Eosinophils 0.5, Absolute Basophils 0, PUBS MCHC 33.0, Urinalysis LIGHT H, Urine Color YEL, Urine Clarity CLEAR, Urine pH 6.0, Ur Specific [place] 1.020, Urine Protein 30 H, Urine Ketones NEG, Urine Nitrite NEG, Urine Bilirubin NEG, Urine Urobilinogen 1.0, Ur Leukocyte Esterase NEG, Ur Microscopic SEDIMENT EXAMINED, Urine RBC RARE, Urine WBC RARE, Urine Mucus FEW, Urine Hemoglobin NEG, Urine Glucose NEG Assessment/Plan Other Findings/Comments: Shamar Hoffman M.D. have examined this patient, reviewed available EMR data, personally reviewed images, discussed with resident/PA/FLYING INSTRUCTOR, discussed management plan with housestaff and nursing staff, discussed managment plan all of healthcare providers, discussed management plan with patient and/or family, agreed with resident/PA/FLYING INSTRUCTOR. The past history and parts of the chart have been autopopulated. Impression 86 year old man - altered mental status - seizure - ckd - htn, hld - brain masses with a midline shift - LLL mass likely primary source - liver masses Plan - after discussion with family - comfort measures - cont keppra for anti-seizure actions - decadron continue as well - morphine for comfort - ativan for anxiolysis - no plan for further blood work or workup - no further imaging or diagnostics, will alert all consultants - hospice evaluation Transfer to private room - TTS 60 min Consult Acknowledgment - Thank you for your consult request.
--- NOTE | 2016-12-04 08:00 | NUR ---
ADMIT ACCEPTANCE: REC'D REPORT FROM HEMAL SINCLAIR IN ER. DX: CVA W/INFARCTION. CT HEAD & ABD/PELVIC DONE. HEAD CT SHOWED 2 LESIONS SEE DETAILS. HAD SEIZURE ACTIVITY ? POST OR IF WAS DURING CT SCAN. ATIVAN IVP, KEPPRA IV & DECADRON GIVEN IN ER SEE EMAR. 0650 ARRIVED IN THE ICU TO RM 106 VIA STRETCHER. SAFELY PLACED PT ONTO BED W/4 STAFF USING THE SLIDING BOARD. ON THE MONITOR SR W/HR 60-70'S, SBP MANUAL 160/80 & AUTO BP 153/63. ON 2LNC POX 100%, LS DIMINISHED THROUGHOUT THE LOBES. FC INSITU & DRAINED 450CC OF [place] URINE. FAMILY AT BEDSIDE. ADMIT ASSESSMENT /HX DONE W/FAMILY. NEURO ASSESSED. PT HAD A GAZED LOOKED TO THE R SIDE. SL R HAND GRASP NOTED. NO GRASP TO L HAND W/DRIFT+VE. W/STIMULUS TO BLE/FEET SPONT BUT NOT PURPOSEFUL. AARON 3MM BRISK. APHASIA NO VERBAL. DR. DELGADO AT BEDSIDE TO TALK TO FAMILY. [id number] HEMAL Jenkins ASSUME CARE.
--- NOTE | 2016-12-04 08:23 | Cons- Neurosurgical ---
General Information and HPI Consulting Request Date of Consult: 12/04/16 Requested By: DENISE ADDISON,HERBERT Reason for Consult: brain mets Source of Information: records History of Present Illness: Mr. Tovar is an 86 year old male with 60-70 years of tobacco abuse, h /o Ct anxiety, HTN, HLD, TIA, aortic stenosis, COPD not on home O2, CKD stage 3 secondary to hypertensive nephrosclerosis and right carotid endarterectomy who presents after an episode of altered mental status at home. Patient is not responsive to questioning and history is obtained from patient's son and [id number] who are at bedside. As per the family, patient was in his usual state of health until this evening when his daughter heard him coughing and went to his room to check up on him, at which time she found he was laying in bed fully dressed making gutteral sounds and not responsive to questioning or commands. Patient showed no signs of seizure like activity, no tremors, no loss of bowel/bladder function, no foaming at the mouth. EMS was called and on arrival to the ED, patient was noted to have a generalized seizure, for which he received ativan, keppra and decadron. Of note, family does note that patient has recently lossed some weight though his appetite remained appropriate, he was more lethargic in the last few days and his eyes occasionally appeared glazed over. There is no recent report of fever, chills, chest pain, cough, shortness of breath, abdominal pain, nausea, vomiting, difficulty voiding or change in bowel habits. CT brain with multiple intraparenchymal lesions and CT C/A/P also with bilat pulmonary lesions and metatastatic disease to the liver. Allergies/Medications Allergies: Coded Allergies: NO KNOWN ALLERGIES (05/29/16) Home Med List: Alprazolam 0.5 MG TABLET 1 TAB PO TID PRN ANXIETY (Reported) Amlodipine Besylate 5 MG TABLET 1 TAB PO DAILY BP (Reported) Aspirin (Ecotrin*) 325 MG TABLET.DR 1 TAB PO DAILY anticoagulation Atenolol 50 MG TABLET 1 TAB PO BID BP (Reported) Atorvastatin Calcium (Lipitor) 20 MG TABLET 1 TAB PO DAILY CHOLESTEROL ( Reported) Fluticasone/Salmeterol (Advair 500-50 Diskus) (Unknown Strength) BLST.W.DEV 2 PUFF INH BID RESPIRATORY (Reported) Hydralazine HCl 50 MG TABLET 1 TAB PO TID BP (Reported) Hydrochlorothiazide 25 MG TABLET 1 TAB PO DAILY DAILY Tiotropium [place] (Spiriva) 18 MCG CAP.W.DEV 1 CAP INH DAILY RESPIRATORY ( Reported) Current Medications: Current Medications Sig/Guicho Start time Last Medication Dose Route Stop Time Status Admin Acetaminophen 1,000 MG Q6P PRN 12/04 0500 AC IV Dexamethasone 4 MG Q6 12/04 0600 AC 12/04 Dextrose/Water 50 ML IV 0618 Dexamethasone 8 MG ONCE ONE 12/04 0215 DC 12/04 IV PUSH 12/04 0216 0236 Dextrose/Sodium 1,000 ML .[id number] 12/04 0500 AC 12/04 Chloride IV 0637 Enoxaparin Sodium 30 MG DAILY 12/04 1000 CAN SC Hydralazine HCl 5 MG ONCE ONE 12/04 0545 DC IV 12/04 0546 Levetiracetam 500 MG Q12 12/04 1000 AC N/A 1 UNIT IV Levetiracetam 1,000 MG ONCE ONE 12/04 0215 DC 12/04 N/A 1 UNIT IV 12/04 0229 0308 Lorazepam 2 MG Q6P PRN 12/04 0500 AC IV Lorazepam 2 MG ONCE ONE 12/04 0200 DC 12/04 IV 12/04 0201 0156 Lorazepam 0 .STK-MED ONE 12/04 0152 DC .ROUTE Pantoprazole Sodium 40 MG DAILY 12/04 1000 AC IV Phenytoin 1,000 MG ONCE ONE 12/04 0200 CAN Sodium Chloride 250 ML IV 12/04 0231 Past History Medical History Neurological: TIA EENT: NONE Cardiovascular: aortic stenosis, hypertension, hyperlipidemia Respiratory: COPD Gastrointestinal: NONE Hepatic: NONE Renal: chronic kidney disease Musculoskeletal: NONE Psychiatric: prior ETOH use Endocrine: NONE Cancer(s): NONE Surgical History Pertinent Surgical History: POLYP REMOVAL NOSE ANGIOGRAM 2016 Psychosocial History Where Do You Live? Home Who Do You Live With? Family Services at Home: None Primary Language: Gibraltarian Smoking Status: Former Smoker ETOH Use: occasional use Illicit Drug Use: denies illicit drug use Living Will? no Functional Ability ADLs Independent: dressing, eating, toileting, bathing. Ambulation: independent IADLs Independent: shopping, housework, finances, food prep, telephone, transportation , medication admin. Employment History Employment: Retired Profession/Employer: [employer] Review of Systems Review of Systems: prior smoker, CRI, HTN, TIA, COPD Exam & Diagnostic Data Vital Signs and I&O Vital Signs Date Time Temp Pulse Resp B/P Pulse O2 O2 Flow FiO2 Ox Delivery Rate 12/04 0700 96.6 73 23 153/63 100 Nasal 2.0L Cannula 12/04 06 96.7 65 18 133/63 98 Nasal 2.0L Cannula 12/04 0524 97.3 65 18 188/80 97 Room Air 12/04 0231 78 16 154/82 96 Room Air 12/04 0213 168/76 12/04 0157 98.0 75 20 169/118 95 Room Air Intake & Output 12/04 1600 12/04 0800 12/04 0000 12/03 1600 12/03 0800 12/03 0000 Intake Total Output Total 450 Balance -450 Output, Urine 450 Patient 81.647 kg Weight Physical Exam: lethargic and nonresponsive arousable unable to follow commands Last 24 Hours of Labs: Laboratory Tests 12/04 12/04 0614 0249 Chemistry Sodium (137 - 145 mmol/L) 141 Potassium (3.5 - 5.1 mmol/L) 4.2 Chloride (98 - 107 mmol/L) 106 Carbon Dioxide (22 - 30 mmol/L) 28 Anion Gap (5 - 16) 8 BUN (9 - 20 mg/dL) 46 H Creatinine (0.7 - 1.2 mg/dL) 1.9 H Estimated GFR (>60 ml/min) 34 L BUN/Creatinine Ratio (7 - 25 %) 24.2 Coagulation PT (9.4 - 12.5 SEC) 12.1 INR (0.90 - 1.17) 1.15 APTT (25 - 37 SEC) 35 Hematology CBC w Diff MAN DIFF ORDERED WBC (4.8 - 10.8 /CUMM) 8.1 RBC (4.70 - 6.10 /CUMM) 3.65 L Hgb (14.0 - 18.0 G/DL) 10.8 L Hct (42 - 52 %) 32.6 L MCV (80.0 - 94.0 FL) 89.2 MCH (27.0 - 31.0 PG) 29.5 RDW (11.5 - 14.5 %) 15.0 H Plt Count (130 - 400 /CUMM) 292 MPV (7.4 - 10.4 FL) 8.2 Gran % (42.2 - 75.2 %) 85.4 H Lymphocytes % (20.5 - 51.1 %) 10.8 L Monocytes % (1.7 - 9.3 %) 1.9 Eosinophils % (0 - 5 %) 1.8 Basophils % (0.0 - 2.0 %) 0.1 Absolute Granulocytes (1.4 - 6.5 /CUMM) 6.9 H Segmented Neutrophils (42.2 - 75.2 %) 91 H Absolute Lymphocytes (1.2 - 3.4 /CUMM) 0.9 L Lymphocytes (20.5 - 51.1 %) 7 L Monocytes (1.7 - 9.3 %) 1 L Absolute Monocytes (0.10 - 0.60 /CUMM) 0.2 Eosinophils (0 - 5.0 %) 1 Absolute Eosinophils (0.0 - 0.7 /CUMM) 0.1 Absolute Basophils (0.0 - 0.2 /CUMM) 0 Platelet Estimate (ADEQUATE) ADEQUATE Hypochromic-Microcytic 1+ Poikilocytosis 1+ Ovalocytes 1+ PUBS MCHC (33.0 - 37.0 G/DL) 33.1 12/04 0159 Chemistry Sodium (137 - 145 mmol/L) 144 Potassium (3.5 - 5.1 mmol/L) 4.4 Chloride (98 - 107 mmol/L) 103 Carbon Dioxide (22 - 30 mmol/L) 29 Anion Gap (5 - 16) 12 BUN (9 - 20 mg/dL) 50 H Creatinine (0.7 - 1.2 mg/dL) 2.1 H Estimated GFR (>60 ml/min) 30 L BUN/Creatinine Ratio (7 - 25 %) 23.8 Glucose (65 - 99 mg/dL) 77 Calcium (8.4 - 10.2 mg/dL) 10.0 Total Bilirubin (0.2 - 1.3 mg/dL) 0.6 AST (17 - 59 U/L) 67 H ALT (21 - 72 U/L) 66 Alkaline Phosphatase (< 127 U/L) 120 Troponin I (<0.11 ng/ml) 0.02 Total Protein (6.3 - 8.2 g/dL) 7.4 Albumin (3.5 - 5.0 g/dL) 3.9 Globulin (1.9 - 4.2 gm/dL) 3.5 Albumin/Globulin Ratio (1.1 - 2.2 %) 1.1 Hematology CBC w Diff NO MAN DIFF REQ WBC (4.8 - 10.8 /CUMM) 8.8 RBC (4.70 - 6.10 /CUMM) 3.98 L Hgb (14.0 - 18.0 G/DL) 11.8 L Hct (42 - 52 %) 35.7 L MCV (80.0 - 94.0 FL) 89.5 MCH (27.0 - 31.0 PG) 29.6 RDW (11.5 - 14.5 %) 14.8 H Plt Count (130 - 400 /CUMM) 338 MPV (7.4 - 10.4 FL) 9.0 Gran % (42.2 - 75.2 %) 68.1 Lymphocytes % (20.5 - 51.1 %) 16.4 L Monocytes % (1.7 - 9.3 %) 8.9 Eosinophils % (0 - 5 %) 6.1 H Basophils % (0.0 - 2.0 %) 0.5 Absolute Granulocytes (1.4 - 6.5 /CUMM) 6.0 Absolute Lymphocytes (1.2 - 3.4 /CUMM) 1.4 Absolute Monocytes (0.10 - 0.60 /CUMM) 0.8 H Absolute Eosinophils (0.0 - 0.7 /CUMM) 0.5 Absolute Basophils (0.0 - 0.2 /CUMM) 0 PUBS MCHC (33.0 - 37.0 G/DL) 33.0 Urines Urinalysis LIGHT H Urine Color (YEL,AMB,STR) YEL Urine Clarity (CLEAR) CLEAR Urine pH (5.0 - 8.0) 6.0 Ur Specific [place] (1.001 - 1.035) 1.020 Urine Protein (NEG,<30 MG/DL) 30 H Urine Ketones (NEG) NEG Urine Nitrite (NEG) NEG Urine Bilirubin (NEG) NEG Urine Urobilinogen (0.1 - 1.0 EU/dl) 1.0 Ur Leukocyte Esterase (NEG) NEG Ur Microscopic SEDIMENT EXAMINED Urine RBC (0 - 5 /HPF) RARE Urine WBC (0 - 2 /HPF) RARE Urine Mucus (FEW,NONE) FEW Urine Hemoglobin (NEG) NEG Urine Glucose (N MG/DL) NEG Imaging Results: Noncontrast Head CT: At the vertex in the left frontal region there is a hypodense area measuring 3.6 cm AP by 4.2 cm transverse. This has a subtle hyperdense rim. There is surrounding edema in the adjacent white matter. The second lesion in the right basal ganglia. Hypodense area measures 2.4 cm AP by 2.4 cm transverse with a slightly hyperdense rim. This is causing mass effect compressing the right lateral frontal horn and slight midline shift. These lesions raise question of metastatic disease. There is also a low attenuating area subcortical escobar matter in the right prefrontal gyrus. This may be related to the metastatic disease or underlying old infarct. There is also subtle hypodensity with subtle hyperdense surrounding cortex at the right posterior parietal-occipital region axial image 23 (3). There is atrophy with prominence of the ventricles and sulci consistent with patient age. There is vascular calcification of the internal carotid arteries. No intracranial hemorrhage. No extra-axial collection. The osseous structures and soft tissues are normal. The mastoid air cells and visualized portions of the paranasal sinuses are well aerated. Likely postsurgical changes of the medial wall the right and left maxillary sinuses C/A/P CT: 1. Mass lesion in the left lower lobe highly suspicious for malignancy. Additional smaller groundglass and small lung nodules in both lungs. 2. Right lower lobe infiltrate/atelectasis. 3. Metastatic disease of the liver. Assessment/Plan Assessment/Plan Pt 86yo with widely metastatic disease in setting of multiple bilateral intracranial lesions presenting with seizure. No role for neurosurgical input in this situation and pt should be evaluated by Radonc and Medonc as he will likely be candidate for chemo/XRT after biopsy of lung or liver lesions for confirmatory diagnosis. Pt would benefit from MRI of brain with and without gadoliuneum if possible to further detail extent of intracranial disease. Seizure management per neurology. Call with questions. Problem List: 1. Brain metastases 2. Seizure Consult Acknowledgment - Thank you for your consult request.
--- NOTE | 2016-12-04 08:39 | Cons- Neurology ---
General Information and HPI Consulting Request Date of Consult: 12/04/16 Requested By: DENISE ADDISON,HERBERT Reason for Consult: suspected brain mets, L sided weakness Source of Information: family, EMR, Dr Tamez Exam Limitations: not alert/orientated History of Present Illness: 86-year-old man who has been fully functional, living with his daughter and her family. Last night while he was in bed they heard some coughing noises. They found him to be staring and muttering repeatedly. He was verbally unresponsive. There was no limb shaking. His eyes were open. He was brought to [place] where a stroke code was initially called. He subsequently went on to have a witnessed convulsion and head CT was concerning for metastatic disease. He was placed on Decadron and received Keppra. He is now in the intensive care unit. CT of the chest abdomen and pelvis showed lung and liver masses. Up until now he has been having no neurologic symptoms other than seeming a little more tired than usual for the past week. He has had no GI or pulmonary symptoms to his family's knowledge. Allergies/Medications Allergies: Coded Allergies: NO KNOWN ALLERGIES (05/29/16) Home Med List: Alprazolam 0.5 MG TABLET 1 TAB PO TID PRN ANXIETY (Reported) Amlodipine Besylate 5 MG TABLET 1 TAB PO DAILY BP (Reported) Aspirin (Ecotrin*) 325 MG TABLET.DR 1 TAB PO DAILY anticoagulation Atenolol 50 MG TABLET 1 TAB PO BID BP (Reported) Atorvastatin Calcium (Lipitor) 20 MG TABLET 1 TAB PO DAILY CHOLESTEROL ( Reported) Fluticasone/Salmeterol (Advair 500-50 Diskus) (Unknown Strength) BLST.W.DEV 2 PUFF INH BID RESPIRATORY (Reported) Hydralazine HCl 50 MG TABLET 1 TAB PO TID BP (Reported) Hydrochlorothiazide 25 MG TABLET 1 TAB PO DAILY DAILY Tiotropium [place] (Spiriva) 18 MCG CAP.W.DEV 1 CAP INH DAILY RESPIRATORY ( Reported) Current Medications: Current Medications Sig/Guicho Start time Last Medication Dose Route Stop Time Status Admin Acetaminophen 1,000 MG Q6P PRN 12/04 0500 AC IV Dexamethasone 4 MG Q6 12/04 0600 AC 12/04 Dextrose/Water 50 ML IV 0618 Dexamethasone 8 MG ONCE ONE 12/04 0215 DC 03/20 IV PUSH 12/04 0216 0236 Dextrose/Sodium 1,000 ML .[id number] 12/04 0500 AC 12/04 Chloride IV 0637 Enoxaparin Sodium 30 MG DAILY 12/04 1000 CAN SC Hydralazine HCl 5 MG ONCE ONE 12/04 0545 DC IV 12/04 0546 Levetiracetam 500 MG Q12 12/04 1000 AC N/A 1 UNIT IV Levetiracetam 1,000 MG ONCE ONE 12/04 0215 DC 12/04 N/A 1 UNIT IV 12/04 0229 0308 Lorazepam 2 MG Q6P PRN 12/04 0500 AC IV Lorazepam 2 MG ONCE ONE 12/04 0200 DC 12/04 IV 12/04 0201 0156 Lorazepam 0 .STK-MED ONE 12/04 0152 DC .ROUTE Pantoprazole Sodium 40 MG DAILY 12/04 1000 AC IV Phenytoin 1,000 MG ONCE ONE 12/04 020 CAN Sodium Chloride 250 ML IV 12/04 0231 Past History Travel History Traveled to [place] past 21 day No Medical History Neurological: TIA EENT: NONE Cardiovascular: aortic stenosis, hypertension, hyperlipidemia Respiratory: COPD Gastrointestinal: NONE Hepatic: NONE Renal: chronic kidney disease Musculoskeletal: NONE Psychiatric: prior ETOH use Endocrine: NONE Cancer(s): NONE Surgical History Surgical History: POLYP REMOVAL NOSE ANGIOGRAM 2016 Psychosocial History Where Do You Live? Home Who Do You Live With? Family Services at Home: None Primary Language: Syriac Smoking Status: Former Smoker ETOH Use: occasional use Illicit Drug Use: denies illicit drug use Living Will? no Functional Ability ADLs Independent: dressing, eating, toileting, bathing. Ambulation: independent IADLs Independent: shopping, housework, finances, food prep, telephone, transportation , medication admin. Employment History Employment: Retired Profession/Employer: [employer] Exam & Diagnostic Data Vital Signs and I&O Vital Signs Date Time Temp Pulse Resp B/P Pulse O2 O2 Flow FiO2 Ox Delivery Rate 12/04 0700 96.6 73 23 153/63 100 Nasal 2.0L Cannula 12/04 06 96.7 65 18 133/63 98 Nasal 2.0L Cannula 12/04 0524 97.3 65 18 188/80 97 Room Air 12/04 0231 78 16 154/82 96 Room Air 12/04 0213 168/76 12/04 0157 98.0 75 20 169/118 95 Room Air Intake & Output 12/04 1600 12/04 0800 12/04 0000 Intake Total Output Total 450 Balance -450 Output, Urine 450 Patient 180 lb Weight Physical Exam: Mental status: Somnolent but arousable Nonverbal Not following commands Cranial nerves: Fundi benign. Pupils equal and reactive to light. Extraocular movements full. Facial movements symmetric. too lethargic for confrontation visual field testing Tongue midline Shoulder shrug symmetric Motor: Normal muscle bulk and tone, with no abnormal involuntary movements No gross sensory loss Tendon reflexes symmetrically trace to 1+ Plantar responses flexor Gait not tested Last 48 Hours of Lab Results: Laboratory Tests 12/04 12/04 0614 0249 Chemistry Sodium (137 - 145 mmol/L) 141 Potassium (3.5 - 5.1 mmol/L) 4.2 Chloride (98 - 107 mmol/L) 106 Carbon Dioxide (22 - 30 mmol/L) 28 Anion Gap (5 - 16) 8 BUN (9 - 20 mg/dL) 46 H Creatinine (0.7 - 1.2 mg/dL) 1.9 H Estimated GFR (>60 ml/min) 34 L BUN/Creatinine Ratio (7 - 25 %) 24.2 Coagulation PT (9.4 - 12.5 SEC) 12.1 INR (0.90 - 1.17) 1.15 APTT (25 - 37 SEC) 35 Hematology CBC w Diff MAN DIFF ORDERED WBC (4.8 - 10.8 /CUMM) 8.1 RBC (4.70 - 6.10 /CUMM) 3.65 L Hgb (14.0 - 18.0 G/DL) 10.8 L Hct (42 - 52 %) 32.6 L MCV (80.0 - 94.0 FL) 89.2 MCH (27.0 - 31.0 PG) 29.5 RDW (11.5 - 14.5 %) 15.0 H Plt Count (130 - 400 /CUMM) 292 MPV (7.4 - 10.4 FL) 8.2 Gran % (42.2 - 75.2 %) 85.4 H Lymphocytes % (20.5 - 51.1 %) 10.8 L Monocytes % (1.7 - 9.3 %) 1.9 Eosinophils % (0 - 5 %) 1.8 Basophils % (0.0 - 2.0 %) 0.1 Absolute Granulocytes (1.4 - 6.5 /CUMM) 6.9 H Segmented Neutrophils (42.2 - 75.2 %) 91 H Absolute Lymphocytes (1.2 - 3.4 /CUMM) 0.9 L Lymphocytes (20.5 - 51.1 %) 7 L Monocytes (1.7 - 9.3 %) 1 L Absolute Monocytes (0.10 - 0.60 /CUMM) 0.2 Eosinophils (0 - 5.0 %) 1 Absolute Eosinophils (0.0 - 0.7 /CUMM) 0.1 Absolute Basophils (0.0 - 0.2 /CUMM) 0 Platelet Estimate (ADEQUATE) ADEQUATE Hypochromic-Microcytic 1+ Poikilocytosis 1+ Ovalocytes 1+ PUBS MCHC (33.0 - 37.0 G/DL) 33.1 12/04 0159 Chemistry Sodium (137 - 145 mmol/L) 144 Potassium (3.5 - 5.1 mmol/L) 4.4 Chloride (98 - 107 mmol/L) 103 Carbon Dioxide (22 - 30 mmol/L) 29 Anion Gap (5 - 16) 12 BUN (9 - 20 mg/dL) 50 H Creatinine (0.7 - 1.2 mg/dL) 2.1 H Estimated GFR (>60 ml/min) 30 L BUN/Creatinine Ratio (7 - 25 %) 23.8 Glucose (65 - 99 mg/dL) 77 Calcium (8.4 - 10.2 mg/dL) 10.0 Total Bilirubin (0.2 - 1.3 mg/dL) 0.6 AST (17 - 59 U/L) 67 H ALT (21 - 72 U/L) 66 Alkaline Phosphatase (< 127 U/L) 120 Troponin I (<0.11 ng/ml) 0.02 Total Protein (6.3 - 8.2 g/dL) 7.4 Albumin (3.5 - 5.0 g/dL) 3.9 Globulin (1.9 - 4.2 gm/dL) 3.5 Albumin/Globulin Ratio (1.1 - 2.2 %) 1.1 Hematology CBC w Diff NO MAN DIFF REQ WBC (4.8 - 10.8 /CUMM) 8.8 RBC (4.70 - 6.10 /CUMM) 3.98 L Hgb (14.0 - 18.0 G/DL) 11.8 L Hct (42 - 52 %) 35.7 L MCV (80.0 - 94.0 FL) 89.5 MCH (27.0 - 31.0 PG) 29.6 RDW (11.5 - 14.5 %) 14.8 H Plt Count (130 - 400 /CUMM) 338 MPV (7.4 - 10.4 FL) 9.0 Gran % (42.2 - 75.2 %) 68.1 Lymphocytes % (20.5 - 51.1 %) 16.4 L Monocytes % (1.7 - 9.3 %) 8.9 Eosinophils % (0 - 5 %) 6.1 H Basophils % (0.0 - 2.0 %) 0.5 Absolute Granulocytes (1.4 - 6.5 /CUMM) 6.0 Absolute Lymphocytes (1.2 - 3.4 /CUMM) 1.4 Absolute Monocytes (0.10 - 0.60 /CUMM) 0.8 H Absolute Eosinophils (0.0 - 0.7 /CUMM) 0.5 Absolute Basophils (0.0 - 0.2 /CUMM) 0 PUBS MCHC (33.0 - 37.0 G/DL) 33.0 Urines Urinalysis LIGHT H Urine Color (YEL,AMB,STR) YEL Urine Clarity (CLEAR) CLEAR Urine pH (5.0 - 8.0) 6.0 Ur Specific [place] (1.001 - 1.035) 1.020 Urine Protein (NEG,<30 MG/DL) 30 H Urine Ketones (NEG) NEG Urine Nitrite (NEG) NEG Urine Bilirubin (NEG) NEG Urine Urobilinogen (0.1 - 1.0 EU/dl) 1.0 Ur Leukocyte Esterase (NEG) NEG Ur Microscopic SEDIMENT EXAMINED Urine RBC (0 - 5 /HPF) RARE Urine WBC (0 - 2 /HPF) RARE Urine Mucus (FEW,NONE) FEW Urine Hemoglobin (NEG) NEG Urine Glucose (N MG/DL) NEG Imaging/Other Studies: FINDINGS: There are 2 mass lesions. At the vertex in the left frontal region there is a hypodense area measuring 3.6 cm AP by 4.2 cm transverse. This has a subtle hyperdense rim. There is surrounding edema in the adjacent white matter. The second lesion in the right basal ganglia. Hypodense area measures 2.4 cm AP by 2.4 cm transverse with a slightly hyperdense rim. This is causing mass effect compressing the right lateral frontal horn and slight midline shift. These lesions raise question of metastatic disease. There is also a low attenuating area subcortical escobar matter in the right prefrontal gyrus. This may be related to the metastatic disease or underlying old infarct. There is also subtle hypodensity with subtle hyperdense surrounding cortex at the right posterior parietal-occipital region axial image 23 (3). There is atrophy with prominence of the ventricles and sulci consistent with patient age. There is vascular calcification of the internal carotid arteries. No intracranial hemorrhage. No extra-axial collection. The osseous structures and soft tissues are normal. The mastoid air cells and visualized portions of the paranasal sinuses are well aerated. Likely postsurgical changes of the medial wall the right and left maxillary sinuses IMPRESSION: There are at least 2 mass lesions in the head. This is suspicious of metastatic disease. Consider MRI of head without and with contrast for follow-up. DICTATED BY: LATANYA SPENCE MD DATE/TIME DICTATED:12/04/16151 C/A/P CT: 1. Mass lesion in the left lower lobe highly suspicious for malignancy. Additional smaller groundglass and small lung nodules in both lungs. 2. Right lower lobe infiltrate/atelectasis. 3. Metastatic disease of the liver. 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
--- NOTE | 2016-12-04 08:44 | Event Note ---
Event Note Event Note: Issue: Discussion of goals of care A detailed discussion was held with patient's son is Mr.Micheal Tovar and [id number] Mrs. Heather Sanches(retired hospice Aid) regarding diagnosis of metastasis and lung cancer, patient current clinical condition and unfortunately poor prognosis. Patient family had a discussion with oncologist on board this a.m., they understand that prognosis remains poor secondary to the metastatic disease, and this point they don't want any further aggressive diagnostic and/or interventional management. Instead they want to keep him comfortable and thus proceed with an hospice evaluation. We will thus respect family wishes, and proceed with hospice evaluation today. Case management has been notified to get official hospice consult, for now patient made comfort measures only pending hospice evaluation. Resident and attending button sewer have been notified regarding above.
--- NOTE | 2016-12-04 08:44 | Cons- Oncology ---
General Information and HPI Consulting Request Date of Consult: 12/04/16 Requested By: DENISE ADDISON,HERBERT Reason for Consult: Metastatic cancer, brain mets Source of Information: family, old records Exam Limitations: clinical condition History of Present Illness: Mr. Tovar is an 86-year-old male with histor of COPD, CKD, HTN, TIA, and carotid stenosis who presented to the hospital with AMS. Patient is not responsive to interview this morning. Per the chart, he was noted to be found in his room non-responsive to commands/questions yesterday evening. EMS was call and was noted to have seizure activity in the ED. He was given Ativan, Decadron, and Keppra. Per the family, the patient has been declining over the past 2 weeks. Imaging in the ED was notable for 2 brain mass. He was admitted to the ICU. CT scan of the chest, abdomen, and pelvis demonstrated lung mass in the left lung and multiple liver masses. Of note, the patient's also had lung cancer. The patient has been able to do all of his ADL prior to this event. He has not been sick recently. Allergies/Medications Allergies: Coded Allergies: NO KNOWN ALLERGIES (05/29/16) Home Med List: Alprazolam 0.5 MG TABLET 1 TAB PO TID PRN ANXIETY (Reported) Amlodipine Besylate 5 MG TABLET 1 TAB PO DAILY BP (Reported) Aspirin (Ecotrin*) 325 MG TABLET.DR 1 TAB PO DAILY anticoagulation Atenolol 50 MG TABLET 1 TAB PO BID BP (Reported) Atorvastatin Calcium (Lipitor) 20 MG TABLET 1 TAB PO DAILY CHOLESTEROL ( Reported) Fluticasone/Salmeterol (Advair 500-50 Diskus) (Unknown Strength) BLST.W.DEV 2 PUFF INH BID RESPIRATORY (Reported) Hydralazine HCl 50 MG TABLET 1 TAB PO TID BP (Reported) Hydrochlorothiazide 25 MG TABLET 1 TAB PO DAILY DAILY Tiotropium [place] (Spiriva) 18 MCG CAP.W.DEV 1 CAP INH DAILY RESPIRATORY ( Reported) Current Medications: Current Medications Sig/Guicho Start time Last Medication Dose Route Stop Time Status Admin Acetaminophen 1,000 MG Q6P PRN 12/04 0500 AC IV Dexamethasone 4 MG Q6 12/04 0600 AC 12/04 Dextrose/Water 50 ML IV 0618 Dexamethasone 8 MG ONCE ONE 12/04 0215 DC 12/04 IV PUSH 12/04 0216 0236 Dextrose/Sodium 1,000 ML .[id number] 12/04 0500 AC 12/04 Chloride IV 0637 Enoxaparin Sodium 30 MG DAILY 12/04 1000 CAN SC Hydralazine HCl 5 MG ONCE ONE 12/04 0545 DC IV 12/04 0546 Levetiracetam 500 MG Q12 12/04 1000 AC N/A 1 UNIT IV Levetiracetam 1,000 MG ONCE ONE 12/04 0215 DC 12/04 N/A 1 UNIT IV 12/04 0229 0308 Lorazepam 2 MG Q6P PRN 12/04 0500 AC IV Lorazepam 2 MG ONCE ONE 12/04 0200 DC 12/04 IV 12/04 0201 0156 Lorazepam 0 .STK-MED ONE 12/04 0152 DC .ROUTE Pantoprazole Sodium 40 MG DAILY 12/04 1000 AC IV Phenytoin 1,000 MG ONCE ONE 12/04 0200 CAN Sodium Chloride 250 ML IV 12/04 0231 Review of Systems Review of Systems: Unable to be obtained due to mental status. Past History Travel History Traveled to [place] past 21 day No Medical History Neurological: TIA EENT: NONE Cardiovascular: aortic stenosis, hypertension, hyperlipidemia Respiratory: COPD Gastrointestinal: NONE Hepatic: NONE Renal: chronic kidney disease Musculoskeletal: NONE Endocrine: NONE Cancer(s): NONE Surgical History Surgical History: POLYP REMOVAL NOSE ANGIOGRAM 2016 Psychosocial History Where Do You Live? Home Who Do You Live With? Family Services at Home: None Primary Language: Russian Smoking Status: Former Smoker ETOH Use: occasional use Illicit Drug Use: denies illicit drug use Living Will? no Functional Ability ADLs Independent: dressing, eating, toileting, bathing. Ambulation: independent IADLs Independent: shopping, housework, finances, food prep, telephone, transportation , medication admin. Employment History Employment: Retired Profession/Employer: [employer] Exam & Diagnostic Data Vital Signs and I&O Vital Signs Date Time Temp Pulse Resp B/P Pulse O2 O2 Flow FiO2 Ox Delivery Rate 12/04 0700 96.6 73 23 153/63 100 Nasal 2.0L Cannula 12/04 617 96.7 65 18 133/63 98 Nasal 2.0L Cannula 12/04 0524 97.3 65 18 188/80 97 Room Air 12/04 0231 78 16 154/82 96 Room Air 12/04 0213 168/76 12/04 0157 98.0 75 20 169/118 95 Room Air Intake & Output 12/04 1600 12/04 0800 12/04 0000 Intake Total Output Total 450 Balance -450 Output, Urine 450 Patient 81.647 kg Weight Physical Exam General Appearance: lethargic, non-verbal Head: atraumatic Eyes: Bilateral: PERRL. Ears, Nose, Throat: normal pharynx Neck: normal inspection Respiratory: normal breath sounds, chest non-tender, no respiratory distress Cardiovascular: regular rate/rhythm, systolic murmur Gastrointestinal: normal bowel sounds, soft, non-tender Extremities: no edema Neurologic/Psych: somnolent, nonverbal Skin: normal color Last 48 Hours of Lab Results: Laboratory Tests 12/04 12/04 0614 0249 Chemistry Sodium (137 - 145 mmol/L) 141 Potassium (3.5 - 5.1 mmol/L) 4.2 Chloride (98 - 107 mmol/L) 106 Carbon Dioxide (22 - 30 mmol/L) 28 Anion Gap (5 - 16) 8 BUN (9 - 20 mg/dL) 46 H Creatinine (0.7 - 1.2 mg/dL) 1.9 H Estimated GFR (>60 ml/min) 34 L BUN/Creatinine Ratio (7 - 25 %) 24.2 Coagulation PT (9.4 - 12.5 SEC) 12.1 INR (0.90 - 1.17) 1.15 APTT (25 - 37 SEC) 35 Hematology CBC w Diff MAN DIFF ORDERED WBC (4.8 - 10.8 /CUMM) 8.1 RBC (4.70 - 6.10 /CUMM) 3.65 L Hgb (14.0 - 18.0 G/DL) 10.8 L Hct (42 - 52 %) 32.6 L MCV (80.0 - 94.0 FL) 89.2 MCH (27.0 - 31.0 PG) 29.5 RDW (11.5 - 14.5 %) 15.0 H Plt Count (130 - 400 /CUMM) 292 MPV (7.4 - 10.4 FL) 8.2 Gran % (42.2 - 75.2 %) 85.4 H Lymphocytes % (20.5 - 51.1 %) 10.8 L Monocytes % (1.7 - 9.3 %) 1.9 Eosinophils % (0 - 5 %) 1.8 Basophils % (0.0 - 2.0 %) 0.1 Absolute Granulocytes (1.4 - 6.5 /CUMM) 6.9 H Segmented Neutrophils (42.2 - 75.2 %) 91 H Absolute Lymphocytes (1.2 - 3.4 /CUMM) 0.9 L Lymphocytes (20.5 - 51.1 %) 7 L Monocytes (1.7 - 9.3 %) 1 L Absolute Monocytes (0.10 - 0.60 /CUMM) 0.2 Eosinophils (0 - 5.0 %) 1 Absolute Eosinophils (0.0 - 0.7 /CUMM) 0.1 Absolute Basophils (0.0 - 0.2 /CUMM) 0 Platelet Estimate (ADEQUATE) ADEQUATE Hypochromic-Microcytic 1+ Poikilocytosis 1+ Ovalocytes 1+ PUBS MCHC (33.0 - 37.0 G/DL) 33.1 12/04 0159 Chemistry Sodium (137 - 145 mmol/L) 144 Potassium (3.5 - 5.1 mmol/L) 4.4 Chloride (98 - 107 mmol/L) 103 Carbon Dioxide (22 - 30 mmol/L) 29 Anion Gap (5 - 16) 12 BUN (9 - 20 mg/dL) 50 H Creatinine (0.7 - 1.2 mg/dL) 2.1 H Estimated GFR (>60 ml/min) 30 L BUN/Creatinine Ratio (7 - 25 %) 23.8 Glucose (65 - 99 mg/dL) 77 Calcium (8.4 - 10.2 mg/dL) 10.0 Total Bilirubin (0.2 - 1.3 mg/dL) 0.6 AST (17 - 59 U/L) 67 H ALT (21 - 72 U/L) 66 Alkaline Phosphatase (< 127 U/L) 120 Troponin I (<0.11 ng/ml) 0.02 Total Protein (6.3 - 8.2 g/dL) 7.4 Albumin (3.5 - 5.0 g/dL) 3.9 Globulin (1.9 - 4.2 gm/dL) 3.5 Albumin/Globulin Ratio (1.1 - 2.2 %) 1.1 Hematology CBC w Diff NO MAN DIFF REQ WBC (4.8 - 10.8 /CUMM) 8.8 RBC (4.70 - 6.10 /CUMM) 3.98 L Hgb (14.0 - 18.0 G/DL) 11.8 L Hct (42 - 52 %) 35.7 L MCV (80.0 - 94.0 FL) 89.5 MCH (27.0 - 31.0 PG) 29.6 RDW (11.5 - 14.5 %) 14.8 H Plt Count (130 - 400 /CUMM) 338 MPV (7.4 - 10.4 FL) 9.0 Gran % (42.2 - 75.2 %) 68.1 Lymphocytes % (20.5 - 51.1 %) 16.4 L Monocytes % (1.7 - 9.3 %) 8.9 Eosinophils % (0 - 5 %) 6.1 H Basophils % (0.0 - 2.0 %) 0.5 Absolute Granulocytes (1.4 - 6.5 /CUMM) 6.0 Absolute Lymphocytes (1.2 - 3.4 /CUMM) 1.4 Absolute Monocytes (0.10 - 0.60 /CUMM) 0.8 H Absolute Eosinophils (0.0 - 0.7 /CUMM) 0.5 Absolute Basophils (0.0 - 0.2 /CUMM) 0 PUBS MCHC (33.0 - 37.0 G/DL) 33.0 Urines Urinalysis LIGHT H Urine Color (YEL,AMB,STR) YEL Urine Clarity (CLEAR) CLEAR Urine pH (5.0 - 8.0) 6.0 Ur Specific [place] (1.001 - 1.035) 1.020 Urine Protein (NEG,<30 MG/DL) 30 H Urine Ketones (NEG) NEG Urine Nitrite (NEG) NEG Urine Bilirubin (NEG) NEG Urine Urobilinogen (0.1 - 1.0 EU/dl) 1.0 Ur Leukocyte Esterase (NEG) NEG Ur Microscopic SEDIMENT EXAMINED Urine RBC (0 - 5 /HPF) RARE Urine WBC (0 - 2 /HPF) RARE Urine Mucus (FEW,NONE) FEW Urine Hemoglobin (NEG) NEG Urine Glucose (N MG/DL) NEG Imaging/Other Studies: CT chest/abdomen/pelvis 12/04/2016: 1. Mass lesion in the left lower lobe highly suspicious for malignancy. Additional smaller groundglass and small lung nodules in both lungs. 2. Right lower lobe infiltrate/atelectasis. 3. Metastatic disease of the liver. Head CT 12/04/2016: There are at least 2 mass lesions (vertex in the left frontal region there is a hypodense area measuring 3.6 cm AP by 4.2 cm transversein the head and right basal ganglia area measures 2.4 cm AP by 2.4 cm transverse with a slightly hyperdense rim). This is causing mass effect compressing the right lateral frontal horn and slight midline shift. This is suspicious of metastatic disease. Consider MRI of head without and with contrast for follow-up. Assessment/Plan Assessment: Mr. Tovar is an 86-year-old male with HTN, COPD, CKD, TIA, and Aortic stenosis who presented to the hospital with AML at home and found to be non-responsive to questioning. He was found to have generalized seizure in the ED and was placed on Ativan, Decadron, and Keppra. CT Head demonstrated 2 mass lesions with some slight midline shift. CT of the chest and abdomen/pelvis demonstrated lung and liver lesions. He currently has metastatic disease of likely pulmonary origin. Neurosurgery is consulted. It is likely he is not a surgical candidate. He may benefit from radiation therapy. Radiation oncology should be consulted. I discussed options with the daughter, son, and granddaughter. The daughter expressed that they will likely decided to go hospice and not do biopsy to further diagnose his disease. I again discussed role of radiation for palliation given his ability to do ADL prior to this. He may be able to undergo therapy if it is small cell with potential response given previous performance status. Family is unsure of the decision at the moment. Recommendations: 1. Follow up family's decision on goals of care 2. Follow up neurosurgery recommendations 3. Radiation oncology evaluation 4. Will need tissue diagnosis, likely liver biopsy if family is amenable 5. Continue dexamethasone and Keppra 6. Follow up on neurology recommendations regarding seizure management Problem List: 1. Brain metastases 2. Metastatic disease 3. Renal insufficiency 4. Seizure Other Findings/Comments: Please call [phone] with any questions or concerns. Consult Acknowledgment - Thank you for your consult request.
--- NOTE | 2016-12-04 11:47 | NUR ---
pt arrived from ICU WITH FAMILY AT BEDSIDE. HE IS ALERT AND ORIENTED, ON 2L NC, VSS, DENIES PAIN AND ANXIETY AT THIS TIME. HE IS REQUESTING A CUP OF COFFEE WHICH WAS PROVIDED FOR HIM. AT THIS TIME THE HOSPICE NURSE IS MEETING WITH THE FAMILY AND AWAITING THE HOSPICE CULINARY INTERN TO PUT IN ORDERS. PT IS NOW COMFORTABLE. DEL RIO DRAINING CLEAR YELLOW URINE.
--- NOTE | 2016-12-12 15:42 | Discharge Summary ---
Visit Information Visit Dates Admission Date: 12/04/16 Discharge Date: 12/04/16 Hospital Course Course Attending Physician: RUTH AGUILAR MD Primary Care Physician: EUN REDDY MD Hospital Course: Mr. 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 In the ED: Vital signs showed T 98.0, HR 75, RR 20, BP 169/118 and O2 saturation of 95% on room air. Labs were significant for normocytic anemia to 11.8/35.7, BUN/cre 50/2.1 (baseline cre 1.8), AST 67, troponin 0.02, INR 1.15 and UA showing high protein. CXR performed was within normal limits. Head CT showed agt least 2 masses in the head, suspicious for metastatic disease. Patient was admitted to the ICU for Altered sensorium secondary to new onset seizure likely secondary to brain masses seen on CT head. He was started on keppra, ativan and decadron. He was maintained on seizure and aspiration precaution, neurology and neurosurgery consults were called, MRI was ordered. Patient remained sedated and unresponsive. A detailed discussion was held with patient's son Mr.Micheal Tovar and daughter -in-law Mrs. Heather Sanches(retired hospice Aid) regarding diagnosis of metastasis and lung cancer, patient current clinical condition and unfortunately poor prognosis. Patient family had a discussion with oncologist on board, they understood that prognosis remains poor secondary to the metastatic disease, and at this point they don't want any further aggressive diagnostic and/or interventional management. Instead they want to keep him comfortable and thus proceed with an hospice evaluation. Case management was notified to get official hospice consult, further managment as per hospice protocol. Allergies: Coded Allergies: NO KNOWN ALLERGIES (05/29/16) Disposition Summary Disposition Principal Diagnosis: Altered sensorium secondary to new onset seizure Additional Diagnosis: CKD stage 3 HTN, HLD Discharge Disposition: hospice - home Discharge Instructions General Discharge Information Code Status: Hospice Patient's Diet: As tolerated Patient's Activity: As tolerated Follow-Up Instructions/Appts: hospice patient Copies To: RUTH AGUILAR MD
== END 2016-12-04 14:05 | disposition hospice, home (50) | DRG 54 ==
LOC: ENRESERVTM → ENRESERVDT → ERH 01:23 → CRI 05:02 → 2NA 05:02 → ERHI 05:02 → CRI 07:03 → 2NA 11:31
PROVIDERS: Internal Medicine; Pediatrics; ADMIT Student in an Organized Health Care Education/Training Program
DX: C79.31 Secondary malignant neoplasm of brain (principal); G93.5 Compression of brain; G93.6 Cerebral edema; N17.9 Acute kidney failure, unspecified; Z51.5 Encounter for palliative care; C78.7 Secondary malignant neoplasm of liver and intrahepatic bile duct; R56.9 Unspecified convulsions; C80.1 Malignant (primary) neoplasm, unspecified; N18.3 Chronic kidney disease, stage 3 (moderate); J44.9 Chronic obstructive pulmonary disease, unspecified; E78.5 Hyperlipidemia, unspecified; F41.9 Anxiety disorder, unspecified; Z86.73 Personal history of transient ischemic attack (TIA), and cerebral infarction without residual deficits; I12.9 Hypertensive chronic kidney disease with stage 1 through stage 4 chronic kidney disease, or unspecified chronic kidney disease; I35.0 Nonrheumatic aortic (valve) stenosis; Z87.891 Personal history of nicotine dependence
CPT/HCPCS: 2NAP; 74176; 81001; 82436; 87086; 93005; 93010; 96374; 96375; 99291; J0131; J0360; J1100; J1650; J1953; J7042

== ENCOUNTER 2016-12-04 14:05 | Inpatient (IN) | payer OTHER ==
[2016-12-04 14:27] VITALS: BP 133/82
--- NOTE | 2016-12-04 17:11 | History & Physical ---
General Information and HPI Chief Complaint: Admitted to hospice Source of Information: patient, family, old records Exam Limitations: unable to give history, confusion Associated Symptoms: confusion History of Present Illness: Patient is an 86-year-old male with past medical history of HTN, TIA, aortic stenosis, COPD who was brought in last night by his family due to finding him muttering, staring off and making coughing noises. He was brought to the emergency room and had witnessed seizure. Workup has revealed 2 mass lesions in the head suspicious for metastatic disease, mass lesion in the left lower lobe of the lung highly suspicious for malignancy as well as multiple masses throughout the liver consistent with metastatic disease. Patient had been nonverbal and unable to follow commands. The family wished to pursue hospice consultation and forgo aggressive workup and treatment. During the afternoon pt has had some increase in alertness and communication abilities. Allergies/Medications Allergies: Coded Allergies: NO KNOWN ALLERGIES (05/29/16) Past History Medical History Neurological: TIA EENT: NONE Cardiovascular: aortic stenosis, hypertension, hyperlipidemia Respiratory: COPD Gastrointestinal: NONE Hepatic: NONE Renal: chronic kidney disease Musculoskeletal: NONE Psychiatric: prior ETOH use Endocrine: NONE Cancer(s): NONE History of MRSA: No History of VRE: No History of CDIFF: No Isolation History: Standard Influenza Vaccine: 05/18/16 Surgical History Surgical History: POLYP REMOVAL NOSE ANGIOGRAM 2016 Past Family/Social History Family History: non-contributory Psychosocial History: , lives with son and [id number]. Former smoker, occasional alcohol use. No living will/POA. Functional Ability: Was previously independent with ADLs/IADLs Review of Systems Review of Systems Constitutional: Reports: see HPI. Exam & Diagnostic Data Last 24 Hrs of Vital Signs/I&O T-96.6; HR-73; RR-23; BP-153/63; O2sat 100%on 2lnp Physical Exam General Appearance Alert, Cooperative, No Acute Distress HEENT Atraumatic, PERRLA, mucous membranes dry Neck Supple, No JVD Cardiovascular Regular Rate, Normal S1, Normal S2, No Murmurs Lungs Clear to Auscultation, Normal Air Movement Abdomen Normal Bowel Sounds, Soft, No Tenderness Neurological Strength at 5/5 X4 Ext, Normal Tone, speech is slow but goal- oriented, logical. Frequent periods of looking off to side in distance, needed prompting to resume answering question. Oriented to "hospital" and person, to year. Stated month as Aug. Said he was in hospital for TIA. Extremities No Cyanosis, No Edema, able to move all 4 extremities Last 24 Hrs of Labs/Nestor: CBC 12/04/16 with WBC 8.1, Hgb 10.8, Hct 32.6.chemistries same daywith BUN 46, creatinine 1.9.urinalysis negative. Diagnostic Data CXR Results No acute abnormality of the chest. Other Results Head CT:IMPRESSION: There are at least 2 mass lesions in the head. This is suspicious of metastatic disease. Consider MRI of head without and with contrast for follow-up. Abdominal/pelvic CT:IMPRESSION: 1. Mass lesion in the left lower lobe highly suspicious for malignancy. Additional smaller groundglass and small lung nodules in both lungs. 2. Right lower lobe infiltrate/atelectasis. 3. Metastatic disease of the liver. Chest CT:IMPRESSION: 1. Mass lesion in the left lower lobe highly suspicious for malignancy. Additional smaller groundglass and small lung nodules in both lungs. 2. Right lower lobe infiltrate/atelectasis. 3. Metastatic disease of the liver. Assessment/Plan Assessment: Patient is an 86-year-old male with past medical history of HTN, TIA, aortic stenosis, COPD with witnessed seizure most likely secondary to mass lesions in the head suspicious for metastatic disease. He also has mass lesion in the left lower lobe of the lung highly suspicious for malignancy as well as multiple masses throughout the liver consistent with metastatic disease. Plan: Hospice orders written. Morphine 1 mg IV every 2 hours when necessary pain/ dyspnea. Ativan 0.5 mg IV every 4 hours when necessary anxiety. Scopolamine and Robinul when necessary congestion. Continue Keppra 500 mg IV every 12 hours as well as Decadron 4 mg IV every 6 hours and will taper. Start omeprazole 20 mg by mouth daily.
--- NOTE | 2016-12-04 22:00 | NUR ---
NURSING NOTE: PT ASLEEP. RR @ 16. NO SIGNS DISTRESS. PT REPOSITIONED. RN WILL CONTINUE TO MONITOR.
--- NOTE | 2016-12-05 02:00 | NUR ---
NURSING NOTE: PT APPEARS TO BE RESTING COMFORTABLE. RR @ 16. NO SIGNS DISTRESS. SON REMAINS AT BEDSIDE. PT REPOSITIONED. RN WILL CONTINUE TO MONITOR.
--- NOTE | 2016-12-05 06:00 | NUR ---
NURSING NOTE: PT AWAKE, COMFORTABLE. STATES NO COMPLAINTS. SON REMAINDS AT BEDSIDE. DEL RIO EMPTIED OF 450ML CLEAR, CLARENCE URINE. PT REPOSITIONED. MEDICATIONS ADMINISTERED. PT COULD NOT SWALLOW WATER, PRILOSEC HELD. RN WILL CONTINUE TO MONITOR.
[2016-12-05 06:29] VITALS: BP 138/80
--- NOTE | 2016-12-05 16:58 | PN- Hospice ---
Subjective Subjective: Patient currently unresponsive, appears comfortable. Family at bedside. Family reports that patient continued to be alert yesterday evening and was able to drink a lot of liquids and eat apple pie and ice cream. He has had 3 doses of Ativan and 2 of morphine over the past 24 hours. Today he was much more lethargic, noncommunicative, no oral intake. Review of Systems Constitutional: Reports: see HPI. Objective Last 24 Hrs of Vital Signs/I&O Vital Signs Date Time Temp Pulse Resp B/P Pulse O2 O2 Flow FiO2 Ox Delivery Rate 12/05 08 Nasal 2.0L Cannula 12/05 0629 97.5 72 18 138/80 96 Nasal 2.0L Cannula 12/05 0000 Nasal 2.0L Cannula Intake & Output 12/05 1600 12/05 0812/05 0000 Intake Total 200 150 150 Output Total 900 Balance 200 -750 150 Intake, IV 200 150 150 Intake, Oral 0 0 Output, Urine 900 Physical Exam General Appearance: no apparent distress, minimally responsive Head: atraumatic, normal appearance Respiratory: no respiratory distress, quiet respiration Cardiovascular: regular rate/rhythm Extremities: no edema Other Physical Findings: baez with clear, sera urine Current Medications: Current Medications Sig/Guicho Start time Last Medication Dose Route Stop Time Status Admin Acetaminophen 650 MG Q4P PRN 12/04 1430 AC AR Artificial Tears 2 GTT Q2P PRN 12/04 1430 AC OU Bisacodyl 10 MG DAILY NEEDED PRN 12/04 1430 AC AR Dexamethasone 4 MG Q6H 12/05 1400 AC 12/05 Dextrose/Water 50 ML IV 1622 Dexamethasone 4 MG Q6H 12/04 1800 DC 12/05 IV 0541 Glycerin 2 SPRAY Q4P PRN 12/04 1430 AC PO Glycerin/Mineral Oil 1 HANNAH Q8P PRN 12/04 1430 AC TOP Glycopyrrolate 200 MCG Q4P PRN 12/04 1430 AC SC Levetiracetam 500 MG Q12 12/04 2200 AC 12/05 N/A 1 UNIT IV 0923 Lorazepam 2 MG ONCE PRN 12/04 1515 AC IV Lorazepam 0.5 MG Q4P PRN 12/04 1430 AC 12/05 IV 0925 Morphine Sulfate 1 MG Q2P PRN 12/04 1430 AC 12/05 IV 0918 Omeprazole 20 MG DAILY AC 12/05 0700 AC PO Scopolamine HBr 1 PAT Q72 PRN 12/04 1430 TOP Assessment/Plan Assessment/Recommendations: Patient is an 86-year-old male with past medical history of HTN, TIA, aortic stenosis, COPD with witnessed seizure most likely secondary to mass lesions in the head suspicious for metastatic disease. He also has mass lesion in the left lower lobe of the lung highly suspicious for malignancy as well as multiple masses throughout the liver consistent with metastatic disease. Pt. has declined overnight, appears comfortable. Continue with current medications, supportive care. Problem List: 1. Brain mass 2. Seizure 3. Lung mass
--- NOTE | 2016-12-05 18:27 | NUR ---
PT RESTING IN BED, OFFERS NO COMPLIANTS. RESP 16. PER DAUGHTER IN LAW, PT HAD SEIZURE ACTIVITY LASTING APRX 10 SECONDS. DECADRON AND ATIVAN PROVIDED PER EMAR. CONT TO MONITOR.
--- NOTE | 2016-12-06 00:10 | NUR ---
LATE ENTRY 12/05/16: PT RESTING COMFORTABLY WITH FAMILY TO BEDSIDE. OFFERS NO COMPLIANTS, FLACC 0. ATIVAN PROVIDED PER EMAR WITH GOOD EFFECT. REPOSITIONED AND PUT ONTO SIZE CLARK BED. CONT TO MONITOR.
--- NOTE | 2016-12-06 01:56 | NUR ---
PT APPEARS TO BE RESTING COMFORTABLY, FAMILY AT BEDSIDE, 2LNC, SLOW SHALLOW BREATHS RR WNL. DEL RIO PATENT. NO S/SX OF PAIN OR DISTRESS AT THIS TIME.
[2016-12-06 06:51] VITALS: BP 132/74
--- NOTE | 2016-12-06 15:44 | PN- Hospice ---
Subjective Subjective: Son at bedside.Pt. is alert, comfortable. He did have witnessed seizure this am and received ativan 2mg IV. No further seizures. Has not required morphine. Able to take sips and bites orally but unable to take oral med. He is conversant today but it is not making sense. Objective Last 24 Hrs of Vital Signs/I&O Vital Signs Date Time Temp Pulse Resp B/P Pulse O2 O2 Flow FiO2 Ox Delivery Rate 12/06 08 Nasal 2.0L Cannula 12/06 0651 97.4 58 20 132/74 96 Nasal 2.0L Cannula 12/06 0000 Nasal 2.0L Cannula 12/05 1600 Nasal 2.0L Cannula Intake & Output 12/06 1600 12/06 0800 12/06 0000 Intake Total 250 60 Output Total 250 575 Balance 250 -190 -575 Intake, IV 150 60 Intake, Oral 100 Output, Urine 250 575 Physical Exam General Appearance: no apparent distress, alert Head: atraumatic Respiratory: normal breath sounds, no respiratory distress Cardiovascular: regular rate/rhythm Abdomen: soft, non-tender Extremities: no edema Neurologic/Psychiatric: alert, speech is repetative and not logical Other Physical Findings: baez with clear, yellow urine Assessment/Plan Assessment/Recommendations: Patient is an 86-year-old male with past medical history of HTN, TIA, aortic stenosis, COPD with witnessed seizure most likely secondary to mass lesions in the head suspicious for metastatic disease. He also has mass lesion in the left lower lobe of the lung highly suspicious for malignancy as well as multiple masses throughout the liver consistent with metastatic disease. For sizures, continue decadron and keppra. Decadron to be tapered sunday. Will start ativan 1mg IV every 6 hours (as pt has a hisotry also of anxiety and had been on alprazolam at home). If additional seizures noted, can increase keppra to 750mh Q12h. Also has order for ativan 2mg IV once for seizure activity. Support provided to son. . Problem List: 1. Brain mass 2. Seizure 3. Lung mass
--- NOTE | 2016-12-06 16:10 | NUR ---
1600- PT HAD MILD SEIZURE LASTING A FEW MINUTES. PER ORDER, ATIVAN 2 MG IV GIVEN AND ANDREW ALEXANDRE APRN NOTIFIED.
--- NOTE | 2016-12-07 05:07 | NUR ---
PT D/A, DENIES PAIN, RR WNL, SHALLOW, UNLABORED. IV KEPPRA, DECADRON GIVEN PER EMAR. FAMILY AT BEDSIDE. NO EVENTS OVERNIGHT. WILL MONITOR.
[2016-12-07 07:30] VITALS: BP 127/70
--- NOTE | 2016-12-07 08:00 | NUR ---
PT SLEEPING AT THIS TIME. 2LNC. RR WNL, NO DYSPNEA OR DISTRESS. DEL RIO IN PLACE. PATENT AND DRAINING CLEAR, YELLOW URINE. TWO IVS IN PLACE. LAC #20 AND RH #20. LOCKED AND PATENT. SIZEWISE BED. SON AND DAUGHTER IN LAW AT [facility]. NO S/S OF PAIN OR DISCOMFORT. NO SEIZURE ACTIVITY NOTED. WILL MONITOR.
--- NOTE | 2016-12-07 10:10 | NUR ---
PT GIVEN FULL BATH. SON REQUESTING TO SPEAK WITH A "DOCTOR OR SOMEONE" REGARDING PLAN OF CARE FOR PT. JUST WANTS TO MAKE SURE THEY ARE DOING THE RIGHT THING FOR THE PT. DR. ZIMMER CALLED TO BEDSIDE, SPOKE WITH FAMILY. DAUGHTER IN LAW STATES SHE IS ACCEPTING PROCESS WHILE SON IS HAVING A HARDER TIME. WILL MONITOR. EMOTIONAL SUPPORT GIVEN.
--- NOTE | 2016-12-07 12:00 | NUR ---
PT RESTING COMFORTABLY AT THIS TIME. NO S/S OF PAIN, DISCOMFORT. REPOSITIONED. MOUTH/SKIN CARE PROVIDED. FAMILY REMAINS AT BEDSIDE. WILL MONITOR.
--- NOTE | 2016-12-07 15:39 | PN- Hospice ---
Subjective Subjective: Son at bedside. Pt less alert today, sips of fluids with some coughing noted. No further seizures (has 2 yesterday and keppra dose increased). Pt denies pain or dyspnea. Receiving scheduled ativan q6h and has not needed prn dose. No morphine needed. Objective Last 24 Hrs of Vital Signs/I&O Vital Signs Date Time Temp Pulse Resp B/P Pulse O2 O2 Flow FiO2 Ox Delivery Rate 12/07 08 Nasal 2.0L Cannula 12/07 0730 97.1 60 18 127/70 94 Nasal 2.0L Cannula 12/07 0000 Nasal 2.0L Cannula 12/06 1600 Nasal 2.0L Cannula Intake & Output 12/07 1600 12/07 0800 12/07 0000 Intake Total 200 250 Output Total 300 850 Balance -100 -600 Intake, IV 200 250 Output, Urine 300 850 Physical Exam General Appearance: comfortable, lethargic Head: atraumatic Ears, Nose, Throat: dry mucous membranes Respiratory: no respiratory distress, quiet respiration Cardiovascular: regular rate/rhythm Extremities: no edema Assessment/Plan Assessment/Recommendations: Patient is an 86-year-old male with past medical history of HTN, TIA, aortic stenosis, COPD with witnessed seizure most likely secondary to mass lesions in the head suspicious for metastatic disease. He also has mass lesion in the left lower lobe of the lung highly suspicious for malignancy as well as multiple masses throughout the liver consistent with metastatic disease. Pt is comfortable and without seizures. Continue current meds. Taper decadron tomorrow. Problem List: 1. Brain mass 2. Seizure 3. Lung mass
[2016-12-08 07:09] VITALS: BP 120/76
--- NOTE | 2016-12-08 15:11 | PN- Hospice ---
Subjective Subjective: [id number] at bedside. Pt minimally responsive, appears comfortable. Has received morphine x 2 for labored respirations. Remains on ativan q6h and has had no seizure activity. Objective Last 24 Hrs of Vital Signs/I&O Vital Signs Date Time Temp Pulse Resp B/P Pulse O2 O2 Flow FiO2 Ox Delivery Rate 12/08 08 Nasal 2.0L Cannula 12/08 0709 97.1 63 18 120/76 96 Nasal 2.0L Cannula 12/08 0000 Nasal 2.0L Cannula 12/07 1600 Nasal 2.0L Cannula Intake & Output 12/08 1600 12/08 0800 12/08 0000 Intake Total 100 0 Output Total 300 350 Balance 100 -300 -350 Intake, IV 100 0 Intake, Oral 0 0 Number 0 Bowel Movements Output, Urine 300 350 Physical Exam General Appearance: no apparent distress, resting comfortably Head: atraumatic, normal appearance Ears, Nose, Throat: oral mucosa dry Respiratory: quiet respiration, no congestion Cardiovascular: regular rate/rhythm Extremities: no edema, no mottling Assessment/Plan Assessment/Recommendations: Patient is an 86-year-old male with past medical history of HTN, TIA, aortic stenosis, COPD with witnessed seizure most likely secondary to mass lesions in the head suspicious for metastatic disease. He also has mass lesion in the left lower lobe of the lung highly suspicious for malignancy as well as multiple masses throughout the liver consistent with metastatic disease. Pt is comfortable and without seizures. Decadron decreased to 2mg IV q6h. Continue scheduled ativan, prn morphine, family support. Problem List: 1. Brain mass 2. Seizure 3. Lung mass
[2016-12-09 06:59] VITALS: BP 162/100
--- NOTE | 2016-12-09 10:11 | PN- Att Addend ---
Attending Addendum Attending Brief Note Pt seen and examined. He is minimally responsive and appears comfortable. His respirations appear unlabored and his heart rate is 90. Lungs have decreased breath sounds bilaterally. He is is 86-year-old male who is here with brain mass with suspected metastases. He is on Decadron with morphine and is imminently dying.
--- NOTE | 2016-12-09 19:10 | NUR ---
PT TURNED AND REPOSITIONED. ATIVAN PROVIDED PER EMAR. RR 15. PT APPEARS COMFORTABLE. FAMILY TO BEDSIDE. CONT TO MONITOR.
--- NOTE | 2016-12-09 20:00 | NUR ---
NURSING NOTE: PT RESTING COMFORTABLY. FAMILY AT BEDSIDE. RR @ 16, SHALLOW, NO SIGNS OF DISTRESS. 2L NC IN PLACE. RN WILL CONTINUE TO MONITOR.
--- NOTE | 2016-12-09 21:36 | NUR ---
PT APPEARS COMFORTABLE. MEDS PROVIDED PER EMAR. RR 10, NO DYSPNEA NOTED. FAMILY TO BEDSIDE. CONT TO MONITOR.
--- NOTE | 2016-12-10 | NUR ---
NURSING NOTE: PT APPEARS TO BE RESTING COMFORTABLY. IV ATIVAN ADMINISTERED PER ORDER. PT REPOSITIONED. MOUTH CARE PROVIDED. FAMILY AT BEDSIDE. PT WARM TO TOUCH, TEMPERATURE TAKEN - 98.8F AXILLARY. RN WILL CONTINUE TO MONITOR.
--- NOTE | 2016-12-10 02:00 | NUR ---
NURSING NOTE: RR @ 16, SHALLOW, NO SIGNS DISTRESS. 2L NC IN PLACE. PT REPOSITIONED. MOUTH CARE PROVIDED. RN WILL CONTINUE TO MONITOR.
[2016-12-10 06:38] VITALS: BP 160/88
--- NOTE | 2016-12-10 08:52 | PN- Att Addend ---
Attending Addendum Attending Brief Note Patient is lethargic but appears comfortable. His blood pressure is 160/80, pulse is 54 and he is on 2 L. Is an 86-year-old male with TIA, aortic stenosis, COPD and brain mass with suspected metastases. He is on Decadron and Keppra and is on hospice care imminently dying and comfortable.
--- NOTE | 2016-12-10 20:00 | NUR ---
THIS RN ASSUMED CARE OF PT . PT UNRESPONSIVE PT ON 2L NC WITH RR 5 NONLABORED SHALLOW. NO S/SX PAIN PRESENT. FAMIYL AT BEDSIDE . PT ON AIR MATTRESS. BED ALARM ON . WILL MONITOR
--- NOTE | 2016-12-11 01:43 | NUR ---
Patient resting comfortably with eyes closed. RR = 7, shallow and non-labored. Patient medicated with scheduled medications per EMAR. Duarte in place draining light sera colored urine to gravity. Pt on specialty air mattress. Family left for the night. Skin care and oral care provided. Patient was turned and repositioned. No S+S of any pain or discomfort noted at this time. Will continue to closely monitor.
[2016-12-11 06:00] VITALS: BP 154/70
--- NOTE | 2016-12-11 08:00 | NUR ---
PT ASLEEP, MIN RESPONSIVE TO CARE, RR 8-10 NO S/S OF DYSPNEA, APPEARS COMFORTABLE, T+R FOR COMFORT, DEL RIO IN PLACE, IV INTACT, ASSESSMENT COMPLETE, FAMILY AT BEDSIDE, WILL CONTINUE TO MONITOR.
--- NOTE | 2016-12-11 14:33 | PN- Hospice ---
Subjective Subjective: Son at bedside. Pt. is lethargic, eyes open, not able to verbally respond, moves right arm at times. Appears comfortable. Objective Last 24 Hrs of Vital Signs/I&O Vital Signs Date Time Temp Pulse Resp B/P Pulse O2 O2 Flow FiO2 Ox Delivery Rate 12/12 799 Nasal 2.0L Cannula 12/11 599 98.5 67 16 154/70 96 Nasal 2.0L Cannula 12/11 0000 Nasal 2.0L Cannula Intake & Output 12/11 1600 12/11 0812/11 0000 Intake Total 30 140 Output Total 350 300 Balance -320 -160 Intake, IV 30 140 Number 0 Bowel Movements Output, Urine 350 300 Physical Exam General Appearance: no apparent distress, lethargic Head: atraumatic Respiratory: no respiratory distress, quiet respiration Cardiovascular: regular rate/rhythm Extremities: no edema Other Physical Findings: baez catheter with sera urine Assessment/Plan Assessment/Recommendations: Patient is an 86-year-old male with past medical history of HTN, TIA, aortic stenosis, COPD with witnessed seizure most likely secondary to mass lesions in the head suspicious for metastatic disease. He also has mass lesion in the left lower lobe of the lung highly suspicious for malignancy as well as multiple masses throughout the liver consistent with metastatic disease. Comfortable. No seizure activity. Continue scheduled ativan, slow decadron taper. Problem List: 1. Brain mass 2. Seizure 3. Lung mass
[2016-12-12 07:09] VITALS: BP 160/92
--- NOTE | 2016-12-12 15:35 | PN- Hospice ---
Subjective Subjective: Family at bedside. Pt unresponsive, appears comfortable. Required morphine x 2 today and ativan x 1 in addition to scheduled ativan. Objective Last 24 Hrs of Vital Signs/I&O Vital Signs Date Time Temp Pulse Resp B/P Pulse O2 O2 Flow FiO2 Ox Delivery Rate 12/12 0800 Nasal 2.0L Cannula 12/12 0709 96.8 74 12 160/92 96 Nasal 2.0L Cannula 12/12 0000 Nasal Cannula 12/11 1600 Nasal 2.0L Cannula Intake & Output 12/12 1600 12/12 0800 12/12 0000 Intake Total 0 120 Output Total 350 425 Balance -350 -305 Intake, IV 120 Intake, Oral 0 Output, Urine 350 425 Physical Exam General Appearance: no apparent distress Respiratory: quiet respiration Cardiovascular: regular rate/rhythm Extremities: no mottling Assessment/Plan Assessment/Recommendations: Patient is an 86-year-old male with past medical history of HTN, TIA, aortic stenosis, COPD with witnessed seizure most likely secondary to mass lesions in the head suspicious for metastatic disease. He also has mass lesion in the left lower lobe of the lung highly suspicious for malignancy as well as multiple masses throughout the liver consistent with metastatic disease. Comfortable. Continue with same plan. Tomorrow d/c decadron. Continue supportive care. Problem List: 1. Brain mass 2. Seizure 3. Lung mass
--- NOTE | 2016-12-12 16:00 | NUR ---
PT RESTING COMFORTABLY IN BED. RR 12, PERIODS OF APNEA NOTED. ON SIZEWISE MATTRESS. ON 2LNC. DEL RIO DRAINING TO GRAVITY. SKIN INTACT. SEIZURE PRECAUTIONS IN PLACE. NO SEIZURE ACTIVITY NOTED. PT REMAINS UNRESPONSIVE. #22 LFA FLUSHING EASILY. ORAL & SKIN CARE PROVIDED. FAMILY AT BEDSIDE. WILL CONTINUE TO MONITOR.
--- NOTE | 2016-12-12 20:00 | NUR ---
PT RESTING COMFORTABLY IN BED. RR 10, PERIODS OF APNEA NOTED. KEPPRA & DECADRON HELD PER FAMILYS REQUEST. NO SEIZURE ACTIVITY NOTED. PT REMAINS ON SIZEWISE MATTRESS. ORAL CARE & SKIN CARE PROVIDED. FAMILY REMAINS AT BEDSIDE. WILL CONTINUE TO MONITOR.
--- NOTE | 2016-12-13 | NUR ---
PT RR 12, NONLABORED BREATHING WTIH MOUTH OPEN. UNAROUSABLE. ON 2L NC. DEL RIO IN PLACE. IV TO LF IN PLACE. SKIN INTACT. ON SIZEWISE. SCHEDULED ATIVAN GIVEN. SEIRZURE PRECAUTIONS IN PLACE. FAMILY AT BEDSIDE, WILL CONTINUE TO MONITOR.
--- NOTE | 2016-12-13 03:05 | NUR ---
PT RR 22, NONLABORED RESPIRATIONS. MORPHINE GIVEN PER EMAR
--- NOTE | 2016-12-13 04:00 | NUR ---
PT RR 20. NON LABORED BREATHING. EYES OPEN RESTING SEEMINGLY COMFORTABLE, NO S/S OF DISTRESS OR DISCOMFORT. FAMILY AT BEDSIDE. WILL MONITOR.
[2016-12-13 06:55] VITALS: BP 132/70
--- NOTE | 2016-12-13 08:00 | NUR ---
PT RR6-8 SHALLOW RESPIRATIONS ON 2L NC. RESTING SEEMINGLY COMFORTABLE NO S/S OF DISCOMFORT OR DISTRESS. FAMILY AT BEDSIDE. TURNED AND REPOSITIONED. WILL MONITOR.
--- NOTE | 2016-12-13 15:51 | PN- Hospice ---
Subjective Subjective: Family at bedside. Received scheduled ativan and prn dose x1; morphine prn x 1. Minimally responsive on repositioning. Family would like Keppra discontinued and ativan utilized for seizures, due to fluid amount administered and IV access tenuous. They do not wish for pt to receive keppra rectally. Objective Last 24 Hrs of Vital Signs/I&O Vital Signs Date Time Temp Pulse Resp B/P Pulse O2 O2 Flow FiO2 Ox Delivery Rate 12/13 1000 Nasal Cannula 12/13 0800 Nasal 2.0L Cannula 12/13 0655 98.6 77 12 132/70 94 Nasal Cannula 12/13 0000 Nasal 2.0L Cannula 12/12 1600 Nasal 2.0L Cannula Intake & Output 12/13 1600 12/13 0800 12/13 0000 Intake Total 40 20 0 Output Total 350 0 150 Balance -310 20 -150 Intake, IV 40 20 Intake, Oral 0 0 Number 0 Bowel Movements Output, Urine 350 0 150 Physical Exam General Appearance: ill-appearing, NAD Respiratory: shallow respirations, occasional apnea, no congestion noted Cardiovascular: regular rate/rhythm Extremities: no edema, no mottling Other Physical Findings: baez with small amount sera urine. Assessment/Plan Assessment/Recommendations: Patient is an 86-year-old male with past medical history of HTN, TIA, aortic stenosis, COPD with witnessed seizure most likely secondary to mass lesions in the head suspicious for metastatic disease. He also has mass lesion in the left lower lobe of the lung highly suspicious for malignancy as well as multiple masses throughout the liver consistent with metastatic disease. Comfortable. Keppra discontinued. Continue scheduled ativan and has prn order for 2mg IV for seizure activity. Taper decadron-2mg IV every 12 hours for 3 days and then 1mg every 12 hours for 3 days then discntinue. Plan discussed with Dr. Kaplan. Problem List: 1. Brain mass 2. Seizure 3. Lung mass
--- NOTE | 2016-12-14 | NUR ---
PT RR 12 ON 2LNC, SHALLOW RESPIRATIONS, RESTING SEEMINGLY COMFORTABLE WITH NO S/S OF DISCOMFORT OR DISTRESS. DEL RIO IN PLACE, IV TO LF, SCHEDULED ATIVAN GIVEN. WILL CONTINUE TO MONITOR.
--- NOTE | 2016-12-14 04:00 | NUR ---
PT TURNED AND REPOSITIONED, RR 16 SHALLOW RESPIRATIONS, NO S/S OF DISTRESS OR DISCOMFORT. PT MOVES MOUTH SPONTANEOUSLY. UNAROUSABLE. DEL RIO IN PLACE WITH 300ML OUTPUT. WILL MONITOR.
[2016-12-14 06:43] VITALS: BP 120/78
--- NOTE | 2016-12-14 13:47 | PN- Hospice ---
Subjective Subjective: Family at bedside. This am pt. had small seizure activity almost constantly. Ativan 2mg IV given with little effect. Ativan drip started at 1mg/hr. Objective Last 24 Hrs of Vital Signs/I&O Vital Signs Date Time Temp Pulse Resp B/P Pulse O2 O2 Flow FiO2 Ox Delivery Rate 12/14 0643 98.1 78 12 120/78 95 Nasal Cannula 12/14 0000 Nasal 2.0L Cannula 12/13 1600 Nasal 2.0L Cannula Intake & Output 12/14 1600 12/14 0800 12/14 0000 Intake Total Output Total 450 Balance -450 Number 0 Bowel Movements Output, Urine 450 Physical Exam General Appearance: no apparent distress, ill-appearing Head: atraumatic, eyes open Respiratory: quiet respiration, RR-24 Cardiovascular: regular rate/rhythm Extremities: no edema, dusky feet b/l Neurologic/Psychiatric: lethargic with eyes open, unable to respond verbally to any stimuli but does make spontaneous jaw movement at times. Assessment/Plan Assessment/Recommendations: Patient is an 86-year-old male with past medical history of HTN, TIA, aortic stenosis, COPD with witnessed seizure most likely secondary to mass lesions in the head suspicious for metastatic disease. He also has mass lesion in the left lower lobe of the lung highly suspicious for malignancy as well as multiple masses throughout the liver consistent with metastatic disease. Ativan drip started at 1mg/hr, titrate per protocol for seizure activity. Continue with prn morphine for syspnea/pain-to receive dose now. Continue support to family. Problem List: 1. Brain mass 2. Seizure 3. Lung mass
--- NOTE | 2016-12-14 16:37 | NUR ---
CALLED TO BEDSIDE BY FAMILY, PT NOTED TO BE HAVING SEIZURE ACTIVITY. GAVE PT IV ATIVAN WITH LITTLE RELIEF. PT PLACED ON ATIVAN DRIP AT 1252 AT 1MG/HR. NO SEIZURE ACTIVITY NOTED SINCE. EMOTIONAL SUPPORT GIVEN TO FAMILY. WILL CONTINUE TO MONITOR.
[2016-12-15 06:42] VITALS: BP 90/50
--- NOTE | 2016-12-15 08:43 | NUR ---
PT UNRESPONSIVE AT THIS TIME. NO FAMILY AT BEDSIDE. RR 22, PRN MORPHINE GIVEN. ATIVAN DRIP RUNNING AT 10ML/HR, 1MG/HR TO #22 IV LFA. PT APPEARS COMFORTABLE. ORAL AND EYE CARE GIVEN. WILL CONTINUE TO MONITOR.
--- NOTE | 2016-12-15 15:02 | PN- Hospice ---
Subjective Subjective: Family at bedside. Pt. has deteriorated significantly. Requiring prn morphine x 6 past 24 hours for dyspnea. IV access lost, ativan drip not able to run through SQ button. No seizures noted. Low grade fever noted and BP dropping. Objective Last 24 Hrs of Vital Signs/I&O Vital Signs Date Time Temp Pulse Resp B/P Pulse O2 O2 Flow FiO2 Ox Delivery Rate 12/15 0800 Nasal 2.0L Cannula 12/15 0642 99.0 87 22 90/50 90 Nasal Cannula 12/15 0000 Nasal 2.0L Cannula 12/14 2000 20 12/14 1800 20 12/14 1600 20 12/14 1600 Nasal 2.0L Cannula Intake & Output 12/15 1600 12/15 0800 12/15 0000 Intake Total 80 84 Output Total 0 150 Balance 80 -66 Intake, IV 80 84 Intake, Oral 0 0 Output, Urine 0 150 Physical Exam General Appearance: mildly dyspneic, very ill-appearing Respiratory: shallow respirations, rate 22 Extremities: mottling b/l LEs to knees Assessment/Plan Assessment/Recommendations: Patient is an 86-year-old male with past medical history of HTN, TIA, aortic stenosis, COPD with witnessed seizure most likely secondary to mass lesions in the head suspicious for metastatic disease. He also has mass lesion in the left lower lobe of the lung highly suspicious for malignancy as well as multiple masses throughout the liver consistent with metastatic disease. Pt. actively dying. Ativan 2mg SQ every 2 hrs for seizures, morphine 2mg SQ every 4 hrs scheduled and every 1 hr as needed. Continue support to pt/family. Problem List: 1. Brain mass 2. Seizure 3. Lung mass
--- NOTE | 2016-12-15 16:00 | NUR ---
PT UNRESPONSIVE AT THIS TIME. RR 20, SHALLOW BREATHING. TWO SUBCUTANEOUS BUTTONS IN PLACE. TJ ATIVAN AND LYNDON MORPHINE. SKIN INTACT, ON SIZEWISE MATTRESS. PT MEDICATED PER EMAR. ORAL CARE PROVIDED. FAMILY REFUSED REPOSITIONING, STATES PT IS COMFORTABLE IN POSITION. FAMILY REMAINS AT BEDSIDE. WILL CONTINUE TO MONITOR.
--- NOTE | 2016-12-15 20:00 | NUR ---
PT REMAINS UNRESPONSIVE. RR 26, MEDICATED WITH PRN MORPHINE AND SCHEDULED ATIVAN. ORAL CARE & SKIN CARE PROVIDED. FAMILY REFUSES REPOSITIONING, REMAINS AT BEDSIDE. WILL CONTINUE TO MONITOR.
--- NOTE | 2016-12-16 00:16 | NUR ---
PT REMAINS UNRESPONSIVE. 2LNC IN PLACE, RR 32 @ 2345 PRN MORHPINE GIVEN SQ THROUGH LYNDON BUTTON. SCHED ATIVAN GIVEN THROUGH TJ BUTTON PER EMAR. IV PLACED #22 RW 12/16. WILL CONTINUE TO CLOSELY MONITOR
--- NOTE | 2016-12-16 02:59 | NUR ---
PT UNRESPONSIVE, ABSENT RR, FIXED PUPILS, NO PULSE. TIME OF 0140 12/16/16. NURSING FURNACE FIRER NOTIFIED, ADMITTING NOTIFIED, DR BAER NOTIFIED. FAMILY CALLED AND IS AT BEDSIDE, EMOTIONAL SUPPORT GIVEN.
--- NOTE | 2016-12-19 12:19 | Discharge Summary ---
Visit Information Visit Dates Admission Date: 12/04/16 Discharge Date: 12/16/16 Hospital Course Course Attending Physician: GLENYS ZIMMER M.D Primary Care Physician: EUN REDDY MD Hospital Course: Patient is an 86-year-old male with past medical history of HTN, TIA, aortic stenosis, COPD with witnessed seizure most likely secondary to mass lesions in the head suspicious for metastatic disease. He also has mass lesion in the left lower lobe of the lung highly suspicious for malignancy as well as multiple masses throughout the liver consistent with metastatic disease. He was admitted for hospice care on a decadron taper and IV keppra for seizure control and kept comfortable with morphine and ativan until he passed peacefully. Allergies: Coded Allergies: NO KNOWN ALLERGIES (05/29/16) Disposition Summary Disposition Principal Diagnosis: Brain Mass Seizures Lung mass-left lower lobe Liver Mass, multiple Additional Diagnosis: hypertension Discharge Disposition: Discharge Instructions General Discharge Information Code Status: Hospice Patient's Diet: N/A Patient's Activity: N/A Follow-Up Instructions/Appts: N/A Copies To: VICENTE ADDIOSN,KRISTEN Lawrence MD Review Statement Documenting Attending: GLENYS ZIMMER M.D Other Findings: I have reviewed the discharge summary performed by the hospice COMPUTER CUSTOMER SUPPORT SPECIALIST.
== END 2016-12-16 04:08 | disposition expired | DRG 72 ==
LOC: 2NA 14:05
PROVIDERS: ADMIT Internal Medicine
DX: G93.9 Disorder of brain, unspecified (principal); R16.0 Hepatomegaly, not elsewhere classified; I10 Essential (primary) hypertension; R56.9 Unspecified convulsions; R91.8 Other nonspecific abnormal finding of lung field; Z51.5 Encounter for palliative care
CPT/HCPCS: J1100; J1953; J2060; J2270; J7040